=== PATIENT | female | born 1985 | race American Indian/Alaskan Native ===

== ENCOUNTER 2018-02-02 17:52 | Emergency (ER) | payer SELFPAY ==
[2018-02-02] MEDS ORDERED: TYLENOL PO ONE (17:57)
[2018-02-02] MEDS ORDERED: TYLENOL ONE (18:02)
--- NOTE | 2018-02-02 21:49 | Emergency Department Report ---
Minor Respiratory - HPI Chief Complaint: Upper Respiratory Infection Stated Complaint: CHEST PAINS/DIZZY Time Seen by Provider: 02/02/18 21:34 Duration: 1 week Pain Location: Throat Severity: severe (10/10) Minor Respiratory: Yes Rhinorrhea (nasal congestion), Yes Sore Throat, Yes Able to Tolerate Fluids, Yes Ear Pain, Yes Cough, Yes Chest Pain (with coughing), No Sick Contacts, No Hemoptysis, No Shortness of Breath, No Fever Other History: This is a 33-year-old female here reported that she is having in head cold, sore throat, body ache, fever and her temperature is 102.8 in triage area and to give her Tylenol in triage area. She said she has been having nasal congestion and runny nose and then fever started yesterday and started coughing with chest pain or coughing. Denies any nausea or vomiting denies any shortness of breath. Sore throat is 10/10 along with body ache worse with swallowing and no alleviating factors. ED Review of Systems ROS: Stated complaint: CHEST PAINS/DIZZY Other details as noted in HPI Constitutional: chills, fever Eyes: denies: eye discharge ENT: ear pain, throat pain, congestion Respiratory: cough. denies: shortness of breath, SOB with exertion, SOB at rest , stridor, wheezing Cardiovascular: chest pain (with cough ). denies: palpitations, dyspnea on exertion, edema, syncope Gastrointestinal: denies: abdominal pain, nausea, vomiting, hematemesis Musculoskeletal: myalgia. denies: back pain, arthralgia Skin: denies: rash, pruritus Neurological: denies: headache, vertigo ED Past Medical Hx - Past Medical History Previous Medical History?: Yes Hx Hypertension: Yes Hx Congestive Heart Failure: No Hx Diabetes: No Hx Asthma: No Hx COPD: No Additional medical history: Vaginal delivery X 2 - Surgical History Past Surgical History?: Yes Additional Surgical History: right ovary removed - Family History Family history: hypertension - Social History Smoking Status: Never Smoker Substance Use Type: None, Marijuana - Medications Home Medications: Home Medications Medication Instructions Recorded Confirmed Last Taken Type Acetaminophen/Codeine [Tylenol #3] 1 tab PO Q6H PRN #21 tab 09/30/14 Unknown Rx Doxycycline [Vibramycin CAP] 100 mg PO Q12HR #28 capsule 09/30/14 Unknown Rx metroNIDAZOLE [Flagyl TAB] 500 mg PO Q12HR #28 tab 09/30/14 Unknown Rx Ciprofloxacin HCl [Ciprofloxacin 500 mg PO Q12H #20 tab 10/26/14 Unknown Rx TAB] HYDROcodone/APAP 5-325 [Noble 1 each PO TID #15 tablet 10/26/14 Unknown Rx 5/325] Ibuprofen [Motrin 800 MG tab] 800 mg PO TID PRN #45 tablet 10/26/14 Unknown Rx Sulfamethoxazole/Trimethoprim 1 each PO BID #20 tablet 10/26/14 Unknown Rx [Bactrim DS TAB] ALBUTEROL Inhaler (OR & NICU) 2 puff IH Q6H PRN #1 inhalation 02/03/18 Unknown Rx [ProAir HFA Inhaler] Azithromycin [Zithromax Z-CHUCKIE] 250 mg PO DAILY 5 Days #1 pkg 02/03/18 Unknown Rx Cetirizine HCl [ZyrTEC] 10 mg PO QAM 14 Days #14 capsule 02/03/18 Unknown Rx Fluticasone [Flonase] 1 spray NS QDAY 14 Days #1 bottle 02/03/18 Unknown Rx Ibuprofen [Motrin] 800 mg PO Q8HR PRN #12 tablet 02/03/18 Unknown Rx guaiFENesin/CODEINE [Robitussin AC] 10 ml PO QHS PRN #70 oral.liqd 02/03/18 Unknown Rx methylPREDNISolone [Medrol Dose 4 mg PO DAILY #1 tab.ds.pk 02/03/18 Unknown Rx Chuckie] Minor Respiratory Exam - Exam General: Vital signs noted. No distress. Alert and acting appropriately. This is a 32-year-old female well-nourished well-developed in no acute distress. HEENT: Yes Moist Mucous Membranes (uvula midline and oral airways patent), Yes Rhinorrhea (nasal congestion), Yes Frontal Tenderness, Yes Maxillary Tenderness, No Pharyngeal Erythema, No Pharyngeal Exudates, No Conjuctival Injection Ear: Neither TM Bulge (bilateral TM congested), Neither TM Erythema, Neither EAC Pain, Neither EAC Discharge Neck: Yes Supple (full range of motion and no C-spine tenderness), No Adenopathy Lungs: Yes Good Air Exchange, Yes Wheezes (scattered wheezes to upper lung field), Yes Cough (dry cough), No Ronchi, No Stridor, No Labored Respirations, No Retractions, No Use of Accessory Muscles, No Other Abnormal Lung Sounds Heart: Yes Regular (tachycardic at 122), No Murmur Abdomen: Yes Normal Bowel Sounds, No Tenderness (nontender the palpation in all quadrants), No Peritoneal Signs Skin: Yes Edema, No Rash Neurologic: Alert and oriented 3., no deficits. Musculoskeletal: Unremarkable. ED Course Vital Signs 02/02/18 17:59 Temperature 102.8 F H Pulse Rate 122 H Respiratory 20 Rate Blood Pressure 152/100 O2 Sat by Pulse 100 Oximetry Vital Signs 02/02/18 02/03/18 02/03/18 17:59 00:05 00:09 Temperature 102.8 F H 98.5 F Pulse Rate 122 H 96 H Respiratory 20 18 Rate Blood Pressure 152/100 126/65 O2 Sat by Pulse 100 98 Oximetry - Reevaluation(s) Reevaluation #1: 02/02/18 23:59 She given Tylenol 975 mg in triage and an additional Motrin 800 mg by mouth in ED. She feels better. Tolerating fluids and no pain at present. ED Medical Decision Making - Radiology Data Radiology results: report reviewed Chest x-ray dictated by radiologist and report reviewed by myself. Please see details below Findings [facility] [address] [place] [address] XRay Report Signed Patient: KIM WHITEHEAD MR#: [id number] : 1985 Acct:[id number] Age/Sex: 32 / F ADM Date: 02/02/18 Loc: ED Attending Dr: Ordering Physician: CARLINE GODDARD Date of Service: 02/02/18 Procedure(s): XR chest routine 2V Accession Number(s): [id number] cc: CARLINE GODDARD Fluoro Time In Minutes: FINAL REPORT EXAM: XR CHEST ROUTINE 2V HISTORY: cough fever and body aches TECHNIQUE: PA and lateral views of the chest were obtained. PRIORS: None. FINDINGS: There are no focal consolidations to suggest pneumonia. No large pleural effusion. No pneumothorax. Cardiac silhouette and mediastinal structures are unremarkable. No acute osseous abnormality identified. IMPRESSION: No radiographic evidence of acute cardiopulmonary disease. Transcribed By: DT Dictated By: CLAUDE VELASCO DO Electronically Authenticated By: CLAUDE VELASCO DO Signed Date/Time: 02/02/182331 DD/ 33 TD/TT: 02/02/182333 - Medical Decision Making This is a 32-year-old female here reported that she is having cough and cold symptoms and she started off with nasal congestion and runny nose with sinus problem 1 week but over the last couple days she has been having a fever body ache. Rapid strep and flu negative, chest x-ray dictated by radiologist's report reviewed by myself. No acute findings. I discussed this patient as she voiced understanding. I discussed diagnosis and treatment plan. Patient with sinusitis with mild bronchitis. She is not having any chest pain at present. She only had chest pain with coughing. Her vital signs and temperature is better and she says she feels better after given Tylenol 975 mg by mouth and Motrin 800 mg by mouth. Patient discharged home in stable condition with prescription for Z-Chuckie, Medrol Dosepak, Flonase, Zyrtec, guaifenesin with codeine and Motrin. - Differential Diagnosis PNA, bronchitis, sinusitis, viral syndrome, pharyngitis Critical care attestation.: If time is entered above; I have spent that time in minutes in the direct care of this critically ill patient, excluding procedure time. ED Disposition Clinical Impression: Cough in adult patient, Fever in adult Sinusitis Qualifiers: Sinusitis location: unspecified location Chronicity: acute Recurrence: not specified as recurrent Qualified Code(s): J01.90 - Acute sinusitis, unspecified Acute bronchitis Qualifiers: Bronchitis organism: unspecified organism Qualified Code(s): J20.9 - Acute bronchitis, unspecified Disposition: DC-01 TO HOME OR SELFCARE Is pt being admited?: No Does the pt Need Aspirin: No Condition: Stable Instructions: Acute Bronchitis (ED), Sinusitis (ED), Acute Cough (ED), Fever in Adults (ED) Additional Instructions: Please follow up with a primary care physician in 2 days if he do not have one follow-up with outside Medical Center Take motrin in every 4-6 hours 2 days and then as needed for fever and pain Take other medication as prescribed. Use albuterol inhaler every 6 hours 2 days and then as needed If your condition worsens, return to the emergency room Increasing fluid intake to 2-3 L of water daily and rest. Take cough medicine with codeine nightly as needed. Please do not drive or operate heavy machinery as this medication causes drowsiness Referrals: PRIMARY CARE, [Primary Care Provider] - 02/04/18 [facility] [Outside] - 02/04/18 Forms: Work/School Release Form(ED)
[2018-02-02] MEDS ORDERED: MOTRIN PO ONE (21:57)
--- NOTE | 2018-02-02 23:32 | XRay Report ---
FINAL REPORT EXAM: XR CHEST ROUTINE 2V HISTORY: cough fever and body aches TECHNIQUE: PA and lateral views of the chest were obtained. PRIORS: None. FINDINGS: There are no focal consolidations to suggest pneumonia. No large pleural effusion. No pneumothorax. C ardiac silhouette and mediastinal structures are unremarkable. No acute osseous abnormality identifie d. IMPRESSION: No radiographic evidence of acute cardiopulmonary disease.
[2018-02-03 00:09] VITALS: BP 126/65
== END 2018-02-03 00:22 | disposition home or self-care (01) ==
LOC: ED 17:52
DX: J01.90 Acute sinusitis, unspecified (principal); J20.9 Acute bronchitis, unspecified; F12.10 Cannabis abuse, uncomplicated
CPT/HCPCS: 71046; 87116; 87400; 87430

== ENCOUNTER 2018-12-24 20:54 | Emergency (ER) | payer MEDICAID ==
[2018-12-24 21:02] VITALS: BP 143/98
--- NOTE | 2018-12-24 21:10 | Event Note ---
ED Screening Note Date of service: 12/24/18 Time: 21:05 ED Screening Note: This is a 33 y.o. F. that presents to the ER with pelvic pain. 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 She is 9 weeks . Followed by [facility]. Reports calling OBGYN and informed to go directly to ER. Denies vaginal bleeding. Reports history of prolapsed uterus with prior . This initial assessment/diagnostic orders/clinical plan/treatment(s) is/are subject to change based on patients health status, clinical progression and re- assessment by fellow clinical providers in the ED. Further treatment and workup at subsequent clinical providers discretion. Patient/guardian urged not to elope from the ED as their condition may be serious if not clinically assessed and managed. Initial orders include: Pelvic Exam Labs
[2018-12-24 23:14] LABS: Bilirubin,Urine NEG (Negative); Blood,Urine NEG (Negative); Color,Urine Yellow (Yellow); Mucus,Urine 1+ /HPF
[2018-12-24] MEDS ORDERED: ACETAMINOPHEN 500 MG TAB PO ONE (23:42)
--- NOTE | 2018-12-24 23:47 | Emergency Department Report ---
ED Female HPI - General Chief complaint: Abdominal Pain Stated complaint: CERVIX PAIN, 9 WEEKS Time Seen by Provider: 12/24/18 21:04 Source: patient Mode of arrival: Ambulatory Limitations: No Limitations - History of Present Illness Initial comments: 33-year-old -[place] female states that she's approximate 9 weeks and 4 days she's reports she went to the bathroom and felt something was hanging out of her vaginal area. Patient states at that time she was dizzy and shortness of breath. Patient complains of abdominal/pelvic pain. Patient reports a past medical history of cervical prolapse, history of preeclampsia. Patient reports that she is currently on vitamins and labetalol. Her last menstrual period was 10/18/2018. [facility] is [facility] by [facility]. -: This evening Location: suprapubic Severity: severe Severity scale (0 -10): 9 Quality: cramping, sharp Consistency: constant Improves with: none Worsens with: none Are you Now?: Yes Last Menstrual Period: 10/18/18 EDC: 07/25/19 Associated Symptoms: abdominal pain, shortness of breath. denies: vaginal discharge, vaginal bleeding, nausea/vomiting, fever/chills - Related Data Sexually active: Yes Previous Rx's Medication Instructions Recorded Last Taken Type Acetaminophen/Codeine [Tylenol #3] 1 tab PO Q6H PRN #21 tab 09/30/14 Unknown Rx DOXYCYCLINE Hyclate [Vibramycin 100 mg PO Q12HR #28 capsule 09/30/14 Unknown Rx CAP] metroNIDAZOLE [Flagyl TAB] 500 mg PO Q12HR #28 tab 09/30/14 Unknown Rx Ciprofloxacin HCl [Ciprofloxacin 500 mg PO Q12H #20 tab 10/26/14 Unknown Rx TAB] HYDROcodone/APAP 5-325 [Miracle 1 each PO TID #15 tablet 10/26/14 Unknown Rx 5/325] Ibuprofen [Motrin 800 MG tab] 800 mg PO TID PRN #45 tablet 10/26/14 Unknown Rx Sulfamethoxazole/Trimethoprim 1 each PO BID #20 tablet 10/26/14 Unknown Rx [Bactrim DS TAB] ALBUTEROL Inhaler (OR & NICU) 2 puff IH Q6H PRN #1 inhalation 02/03/18 Unknown Rx [ProAir HFA Inhaler] Azithromycin [Zithromax Z-KELTON] 250 mg PO DAILY 5 Days #1 pkg 02/03/18 Unknown Rx Cetirizine HCl [ZyrTEC] 10 mg PO QAM 14 Days #14 capsule 02/03/18 Unknown Rx Fluticasone [Flonase] 1 spray NS QDAY 14 Days #1 bottle 02/03/18 Unknown Rx Ibuprofen [Motrin] 800 mg PO Q8HR PRN #12 tablet 02/03/18 Unknown Rx guaiFENesin/CODEINE [Robitussin AC] 10 ml PO QHS PRN #70 oral.liqd 02/03/18 Unknown Rx methylPREDNISolone [Medrol Dose 4 mg PO DAILY #1 tab.ds.pk 02/03/18 Unknown Rx Kelton] Allergies Allergy/AdvReac Type Severity Reaction Status Date / Time Penicillins Allergy Hives Verified 12/24/18 21:00 ED Review of Systems ROS: Stated complaint: CERVIX PAIN, 9 WEEKS Other details as noted in HPI Comment: All other systems reviewed and negative ED Past Medical Hx - Past Medical History Previous Medical History?: Yes Hx Hypertension: Yes Hx Congestive Heart Failure: No Hx Diabetes: No Hx Asthma: No Hx COPD: No Additional medical history: Vaginal delivery X 2 - Surgical History Past Surgical History?: Yes Additional Surgical History: right ovary removed - Social History Smoking Status: Never Smoker Substance Use Type: None, Marijuana - Medications Home Medications: Home Medications Medication Instructions Recorded Confirmed Last Taken Type Acetaminophen/Codeine [Tylenol #3] 1 tab PO Q6H PRN #21 tab 09/30/14 Unknown Rx DOXYCYCLINE Hyclate [Vibramycin 100 mg PO Q12HR #28 capsule 09/30/14 Unknown Rx CAP] metroNIDAZOLE [Flagyl TAB] 500 mg PO Q12HR #28 tab 09/30/14 Unknown Rx Ciprofloxacin HCl [Ciprofloxacin 500 mg PO Q12H #20 tab 10/26/14 Unknown Rx TAB] HYDROcodone/APAP 5-325 [Miracle 1 each PO TID #15 tablet 10/26/14 Unknown Rx 5/325] Ibuprofen [Motrin 800 MG tab] 800 mg PO TID PRN #45 tablet 10/26/14 Unknown Rx Sulfamethoxazole/Trimethoprim 1 each PO BID #20 tablet 10/26/14 Unknown Rx [Bactrim DS TAB] ALBUTEROL Inhaler (OR & NICU) 2 puff IH Q6H PRN #1 inhalation 02/03/18 Unknown Rx [ProAir HFA Inhaler] Azithromycin [Zithromax Z-KELTON] 250 mg PO DAILY 5 Days #1 pkg 02/03/18 Unknown Rx Cetirizine HCl [ZyrTEC] 10 mg PO QAM 14 Days #14 capsule 02/03/18 Unknown Rx Fluticasone [Flonase] 1 spray NS QDAY 14 Days #1 bottle 02/03/18 Unknown Rx Ibuprofen [Motrin] 800 mg PO Q8HR PRN #12 tablet 02/03/18 Unknown Rx guaiFENesin/CODEINE [Robitussin AC] 10 ml PO QHS PRN #70 oral.liqd 02/03/18 Unknown Rx methylPREDNISolone [Medrol Dose 4 mg PO DAILY #1 tab.ds.pk 02/03/18 Unknown Rx Kelton] ED Physical Exam - General Limitations: No Limitations General appearance: alert, in no apparent distress - Head Head exam: Present: atraumatic, normocephalic - Eye Eye exam: Present: normal appearance - ENT ENT exam: Present: mucous membranes moist - GI/Abdominal GI/Abdominal exam: Present: soft, tenderness. Absent: distended - Bi-manual exam: Present: cervical motion tendernes, uterine enlargement, other (cervix prolapsed mid vaginal vault) - Extremities Exam Extremities exam: Present: normal inspection, full ROM - Back Exam Back exam: Present: normal inspection - Neurological Exam Neurological exam: Present: alert, oriented X3 - Psychiatric Psychiatric exam: Present: normal affect, normal mood - Skin Skin exam: Present: warm, dry, intact, normal color. Absent: rash ED Course Vital Signs 12/24/18 20:59 Temperature 98.3 F Pulse Rate 102 H Respiratory 18 Rate Blood Pressure 143/98 O2 Sat by Pulse 99 Oximetry ED Medical Decision Making - Lab Data Lab Results 12/24/18 12/24/18 Range/Units 22:49 Unknown HCG, Quant 59546 H (0-4) mIU/mL Urine Color Yellow (Yellow) Urine Turbidity Cloudy (Clear) Urine pH 7.0 (5.0-7.0) Ur Specific [place] 1.020 (1.003-1.030) Urine Protein 30 mg/dl (Negative) mg/dL Urine Glucose (UA) Neg (Negative) mg/dL Urine Ketones 20 (Negative) mg/dL Urine Blood Neg (Negative) Urine Nitrite Neg (Negative) Urine Bilirubin Neg (Negative) Urine Urobilinogen 4.0 (<2.0) mg/dL Ur Leukocyte Esterase Neg (Negative) Urine WBC (Auto) 3.0 (0.0-6.0) /HPF Urine RBC (Auto) 2.0 (0.0-6.0) /HPF U Epithel Cells (Auto) 1.0 (0-13.0) /HPF Urine Mucus 1+ /HPF Urine Yeast (Budding) 2+ /HPF - Medical Decision Making This is a 33 y.o. F. that presents to the ER with pelvic pain. 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 Followed by [facility]. Reports calling OBGYN and informed to go directly to ER. Denies vaginal bleeding. Reports history of prolapsed uterus with prior . Critical care attestation.: If time is entered above; I have spent that time in minutes in the direct care of this critically ill patient, excluding procedure time. ED Disposition Condition: Stable Instructions: Abdominal Pain (ED) Referrals: CALEB DIAZ MD [Primary Care Provider] - 3-5 Days
--- NOTE | 2018-12-25 01:06 | Ultrasound Report ---
Obstetrical ultrasound. HISTORY: Pelvic pain with possible cervical prolapse. FINDINGS: Imaging was performed by transabdominally and endovaginally. FINDINGS: The uterus measures 13.4 x 9.7 x 9.8 cm. A small fibroid measures 1.5 cm. An early viable intrauterine is dated 20 weeks 6 days. heart tones are 170 bpm. The right ovary was not visualized. The left ovary measures 2.4 x 2.1 x 3 cm and demonstrate appropri ate flow. IMPRESSION: 1. Early viable intrauterine dated 9 weeks 6 days. 2. Left ovary normal. Signer Name: Luis Valencia MD Signed: 12/25/2018 1:01 AM Workstation Name: [id number]
== END 2018-12-25 01:46 | disposition left against medical advice (07) ==
LOC: ED 20:54
DX: O9A.211 Injury, poisoning and certain other consequences of external causes complicating pregnancy, first trimester (principal); R10.2 Pelvic and perineal pain; R42 Dizziness and giddiness; O16.1 Unspecified maternal hypertension, first trimester; F12.10 Cannabis abuse, uncomplicated; Z79.899 Other long term (current) drug therapy; Z79.1 Long term (current) use of non-steroidal anti-inflammatories (NSAID); Z88.0 Allergy status to penicillin; Z3A.09 9 weeks gestation of pregnancy; W01.198A Fall on same level from slipping, tripping and stumbling with subsequent striking against other object, initial encounter; Y93.89 Activity, other specified; Y92.091 Bathroom in other non-institutional residence as the place of occurrence of the external cause; Y99.8 Other external cause status
CPT/HCPCS: 36415; 76801; 76817; 81001; 84702; 99284

== ENCOUNTER 2019-07-06 11:15 | Inpatient (IN) | payer MEDICAID ==
[2019-07-06] MEDS ORDERED: TERBUTALINE 1 MG/1 ML INJ SUB-Q PRN (11:55)
[2019-07-06] MEDS ORDERED: LIDOCAINE (2%) 20 MG/1 ML VIAL 20 ML MDV INFILTRATI ONE (11:55)
[2019-07-06] MEDS ORDERED: ONDANSETRON 4 MG/2 ML INJ IV PRN (11:55)
[2019-07-06] MEDS ORDERED: TERBUTALINE 1 MG/1 ML INJ IVP PRN (11:55)
[2019-07-06] MEDS ORDERED: fentaNYL 100 MCG/2 ML INJ IV PRN (11:55)
[2019-07-06] MEDS ORDERED: ePHEDrine SULFATE 50 MG/1 ML INJ IV PRN (11:55)
[2019-07-06] MEDS ORDERED: NalbUPHINE 10 MG/1 ML INJ IV PRN (11:55)
[2019-07-06] MEDS ORDERED: OXYTOCIN DRIP 30 UNITS/500 ML BAG IV SCH (12:00)
[2019-07-06 12:14] LABS: Bilirubin,Urine NEG (Negative); Blood,Urine NEG (Negative); Color,Urine Amber (Yellow); Mucus,Urine 3+ /HPF
[2019-07-06 12:32] LABS: Hematocrit 33.8 % (30.3-42.9); Hemoglobin 11.1 gm/dl (10.1-14.3); Mean Corpuscular HGB Conc 33 % (30-34); Mean Corpuscular Volume 84 fl (79-97); Platelet Count 367 K/mm3 (140-440); Red Blood Count 4.01 M/mm3 (3.65-5.03); Red Cell Distribution Width 14.2 % (13.2-15.2)
--- NOTE | 2019-07-06 12:37 | History and Physical Report ---
History of Present Illness Date of examination: 07/06/19 Date of admission: 07/06/19 11:39 Chief complaint: Presents for scheduled induction of labor per [facility] due to GDM A2, CHTN, Maternal obesity, and Non-Compliance. History of present illness: Early entry to care, co-maximiliano with [facility] due to CHTN, Maternal Obesity, GDM A2. course complicated by Smoking, Vitamin D Deficiency, Anemia, and a Hx of HSV II. 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 History: abnormal PAP smear, chlamydia, herpes, trichomonas Family/Genetic History: diabetes, heart disease, hypertension Social history: single, smoking (Tobacco and THC) - Obstetrical History Expected Date of Delivery: 07/25/19 Actual Gestation: 37 Week(s) 2 Day(s) : 5 Para: 2 Hx # Term Pregnancies: 2 Induced : 2 Number of Living Children: 2 #1 Gender: Male year: 2,[birth year] Birthweight: 2.523 kg Method of Delivery: Vaginal Gestational age at delivery: 37 Complications: other (induced for preeclampsia) #2 Infant Gender: Male year: 2,013 Birthweight: 3.459 kg Method of Delivery: Vaginal Gestational age at delivery: 38 Complications: none Medications and Allergies Allergies Allergy/AdvReac Type Severity Reaction Status Date / Time Penicillins Allergy Severe Hives Verified 07/06/19 11:50 Home Medications Medication Instructions Recorded Confirmed Last Taken Type Acetaminophen/Codeine [Tylenol #3] 1 tab PO Q6H PRN #21 tab 09/30/14 Unknown Rx DOXYCYCLINE Hyclate [Vibramycin 100 mg PO Q12HR #28 capsule 09/30/14 Unknown Rx CAP] metroNIDAZOLE [Flagyl TAB] 500 mg PO Q12HR #28 tab 09/30/14 Unknown Rx Ciprofloxacin HCl [Ciprofloxacin 500 mg PO Q12H #20 tab 10/26/14 Unknown Rx TAB] HYDROcodone/APAP 5-325 [[place] 1 each PO TID #15 tablet 10/26/14 Unknown Rx 5/325] Ibuprofen [Motrin 800 MG tab] 800 mg PO TID PRN #45 tablet 10/26/14 Unknown Rx Sulfamethoxazole/Trimethoprim 1 each PO BID #20 tablet 10/26/14 Unknown Rx [Bactrim DS TAB] Albuterol INH(or & Nicu Only) 2 puff IH Q6H PRN #1 inhalation 02/03/18 Unknown Rx [ProAir HFA Inhaler] Azithromycin [Zithromax Z-KELTON] 250 mg PO DAILY 5 Days #1 pkg 02/03/18 Unknown Rx Cetirizine HCl [ZyrTEC] 10 mg PO QAM 14 Days #14 capsule 02/03/18 Unknown Rx Fluticasone [Flonase] 1 spray NS QDAY 14 Days #1 bottle 02/03/18 Unknown Rx Ibuprofen [Motrin] 800 mg PO Q8HR PRN #12 tablet 02/03/18 Unknown Rx guaiFENesin/CODEINE [Robitussin AC] 10 ml PO QHS PRN #70 oral.liqd 02/03/18 Unknown Rx methylPREDNISolone [Medrol Dose 4 mg PO DAILY #1 tab.ds.pk 02/03/18 Unknown Rx Kelton] Active Meds: Active Medications Butorphanol Tartrate (Stadol) 2 mg IV Q2H PRN PRN Reason: Pain , Severe (7-10) Ephedrine Sulfate (Ephedrine Sulfate) 10 mg IV Q2M PRN PRN Reason: Hypotension Fentanyl (Sublimaze) 100 mcg IV Q2H PRN PRN Reason: Pain,Severe (7-10) LABOR PAIN Oxytocin/Sodium Chloride (Pitocin/Ns 20 Unit/1000ml Drip) 20 units in 1,000 mls @ 125 mls/hr IV DIRECT YOBANY Oxytocin/Sodium Chloride (Pitocin/Ns 30 Unit/500ml) 30 units in 500 mls @ 4 mls/hr IV TITR YOBANY; Protocol Lactated Ringer's (Lactated Ringers) 1,000 mls @ 125 mls/hr IV DIRECT YOBANY Mineral Oil (Mineral Oil) 30 ml PO QHS PRN PRN Reason: Constipation Misoprostol (Cytotec) 25 mcg VG Q4H PRN PRN Reason: induction Nalbuphine HCl (Nalbuphine) 10 mg IV Q2H PRN PRN Reason: Pain, Moderate (4-6) Ondansetron HCl (Zofran) 4 mg IV Q8H PRN PRN Reason: Nausea And Vomiting Terbutaline Sulfate (Brethine) 0.25 mg SUB-Q ONCE PRN PRN Reason: Hyperstimulation/Hypertonicity Terbutaline Sulfate (Brethine) 0.25 mg IVP ONCE PRN PRN Reason: Hyperstimulation/Hypertonicity Review of Systems All systems: negative - Vital Signs Vital signs: Vital Signs Pulse Pulse Ox 115 H 99 07/06/19 12:00 07/06/19 12:00 Temp Pulse Resp BP Pulse Ox 97.6 F 113 H 20 135/83 100 07/06/19 12:06 07/06/19 12:30 07/06/19 12:06 07/06/19 12:18 07/06/19 12:30 - Physical Exam Breasts: Positive: normal Cardiovascular: Regular rate Lungs: Positive: Clear to auscultation, Normal air movement Abdomen: Positive: normal appearance, soft, normal bowel sounds Genitourinary (Female): Positive: normal external genitalia, normal perenium Vagina: Positive: normal moisture Uterus: Positive: enlarged - Obstetrical FHR: category 1 Uterine Contraction Monitor Mode: External Cervical Dilatation: 3 (Vtx; Intact) Cervical Effacement Percentage: 30 station: -3 Uterine Contraction Pattern: Irregular Uterine Tone Measurement Phase: Resting Uterine Contraction Intensity: Mild Results Result Diagrams: 07/06/19 12:05 Abnormal lab results 07/06/19 Range/Units Unknown Ur Specific [place] 1.034 H (1.003-1.030) Urine WBC (Auto) 17.0 H (0.0-6.0) /HPF U Epithel Cells (Auto) 30.0 H (0-13.0) /HPF All other labs normal. Assessment and Plan A: IUP @ 37 2/7 Weeks Category I Tracing CHTN GDM A2 Maternal Obesity Smoker GBS Negative P: Admit to L&D per Routine Orders Cytotec 25mg Intravaginally Accuchecks q 4 hours PIH Labs
[2019-07-06 12:52] LABS: Alanine Aminotransferase 9 units/L (7-56); Uric Acid 5.1 mg/dL (3.5-7.6)
[2019-07-06] MEDS ORDERED: miSOPROStol 25 MCG TAB VG PRN (13:00)
[2019-07-06] MEDS: ACETAMINOPHEN 325 MG TAB PO PRN ×2 (13:21→21:10)
[2019-07-06] MEDS: LACTATED RINGERS 1,000 ML IV SCH ×2 (13:22→21:10)
[2019-07-06] MEDS: CALCIUM CARBONATE 500 MG TAB CHEW PO SCH (14:38)
[2019-07-06] MEDS: BUTORPHANOL 2 MG/1 ML INJ IV PRN ×3 (17:59→22:35)
--- NOTE | 2019-07-06 19:34 | Progress Note ---
Assessment and Plan A: IUP@ 37.2 wks CHTN; GDMA2; smoker + HSV, - GBS p: Continue monitoring Anticipate - Patient Problems (1) At high risk for complications of intrauterine (IUP) Current Visit: Yes Status: Acute (2) GDM, class A2 Current Visit: Yes Status: Acute (3) Chronic hypertension affecting Current Visit: Yes Status: Acute (4) Smoker Current Visit: Yes Status: Acute Subjective - Subjective Date of service: 07/06/19 Patient reports: movement normal Objective - Vital Signs Vital Signs: Vital Signs - 12hr 07/06/19 07/06/19 07/06/19 12:00 12:03 12:05 Temperature Pulse Rate 115 H 113 H 117 H Respiratory Rate Blood Pressure 138/86 Blood Pressure [Left] O2 Sat by Pulse 99 97 Oximetry 07/06/19 07/06/19 07/06/19 12:06 12:10 12:15 Temperature 97.6 F Pulse Rate 113 H 113 H 121 H Respiratory 20 Rate Blood Pressure Blood Pressure 138/86 [Left] O2 Sat by Pulse 98 99 98 Oximetry 07/06/19 07/06/19 07/06/19 12:18 12:20 12:25 Temperature Pulse Rate 111 H 109 H 102 H Respiratory Rate Blood Pressure 135/83 Blood Pressure [Left] O2 Sat by Pulse 99 100 Oximetry 07/06/19 07/06/19 07/06/19 12:30 12:34 12:35 Temperature Pulse Rate 113 H 115 H 109 H Respiratory Rate Blood Pressure 149/93 Blood Pressure [Left] O2 Sat by Pulse 100 98 Oximetry 07/06/19 07/06/19 07/06/19 12:40 12:56 12:57 Temperature Pulse Rate 98 H 110 H 109 H Respiratory Rate Blood Pressure 176/96 Blood Pressure [Left] O2 Sat by Pulse 99 100 Oximetry 07/06/19 07/06/19 07/06/19 13:01 13:03 13:06 Temperature Pulse Rate 111 H 103 H 116 H Respiratory Rate Blood Pressure 149/87 Blood Pressure [Left] O2 Sat by Pulse 98 99 Oximetry 07/06/19 07/06/19 07/06/19 13:11 13:16 13:17 Temperature Pulse Rate 96 H 99 H 100 H Respiratory Rate Blood Pressure 161/87 Blood Pressure [Left] O2 Sat by Pulse 99 99 Oximetry 07/06/19 07/06/19 07/06/19 13:21 13:26 13:27 Temperature Pulse Rate 106 H 98 H 100 H Respiratory Rate Blood Pressure 147/75 Blood Pressure [Left] O2 Sat by Pulse 99 99 Oximetry 07/06/19 07/06/19 07/06/19 13:31 13:33 13:36 Temperature Pulse Rate 114 H 102 H 96 H Respiratory Rate Blood Pressure 164/80 Blood Pressure [Left] O2 Sat by Pulse 99 100 Oximetry 07/06/19 07/06/19 07/06/19 13:41 13:46 13:47 Temperature Pulse Rate 107 H 94 H 93 H Respiratory Rate Blood Pressure 170/67 Blood Pressure [Left] O2 Sat by Pulse 100 100 Oximetry 07/06/19 07/06/19 07/06/19 13:51 13:56 14:01 Temperature Pulse Rate 112 H 94 H 90 Respiratory Rate Blood Pressure Blood Pressure [Left] O2 Sat by Pulse 99 99 99 Oximetry 07/06/19 07/06/19 07/06/19 14:04 14:06 14:11 Temperature Pulse Rate 94 H 96 H 97 H Respiratory Rate Blood Pressure 135/61 Blood Pressure [Left] O2 Sat by Pulse 100 99 Oximetry 07/06/19 07/06/19 07/06/19 14:16 14:18 14:22 Temperature Pulse Rate 93 H 94 H 96 H Respiratory Rate Blood Pressure 160/84 Blood Pressure [Left] O2 Sat by Pulse 100 99 Oximetry 07/06/19 07/06/19 07/06/19 14:27 14:33 14:34 Temperature Pulse Rate 92 H 109 H 95 H Respiratory Rate Blood Pressure Blood Pressure [Left] O2 Sat by Pulse 99 97 91 Oximetry 07/06/19 07/06/19 07/06/19 14:38 14:43 14:48 Temperature Pulse Rate 98 H 96 H 90 Respiratory Rate Blood Pressure Blood Pressure [Left] O2 Sat by Pulse 100 100 99 Oximetry 07/06/19 07/06/19 07/06/19 14:53 14:59 15:04 Temperature Pulse Rate 91 H 92 H 94 H Respiratory Rate Blood Pressure Blood Pressure [Left] O2 Sat by Pulse 99 99 98 Oximetry 07/06/19 07/06/19 07/06/19 15:09 15:14 15:19 Temperature Pulse Rate 95 H 85 82 Respiratory Rate Blood Pressure 143/85 Blood Pressure [Left] O2 Sat by Pulse 99 100 100 Oximetry 07/06/19 07/06/19 07/06/19 15:24 15:29 15:34 Temperature Pulse Rate 92 H 91 H 88 Respiratory Rate Blood Pressure Blood Pressure [Left] O2 Sat by Pulse 100 100 99 Oximetry 07/06/19 07/06/19 07/06/19 15:39 16:04 16:09 Temperature Pulse Rate 86 100 H 89 Respiratory Rate Blood Pressure Blood Pressure [Left] O2 Sat by Pulse 100 98 100 Oximetry 07/06/19 07/06/19 07/06/19 16:14 16:19 16:24 Temperature Pulse Rate 91 H 95 H 96 H Respiratory Rate Blood Pressure 176/86 Blood Pressure [Left] O2 Sat by Pulse 98 99 100 Oximetry 07/06/19 07/06/19 07/06/19 16:29 16:34 16:39 Temperature Pulse Rate 91 H 106 H 92 H Respiratory Rate Blood Pressure Blood Pressure [Left] O2 Sat by Pulse 99 100 99 Oximetry 07/06/19 07/06/19 07/06/19 16:44 16:49 16:54 Temperature Pulse Rate 91 H 107 H 94 H Respiratory Rate Blood Pressure Blood Pressure [Left] O2 Sat by Pulse 100 100 99 Oximetry 07/06/19 07/06/19 07/06/19 16:59 17:04 17:09 Temperature Pulse Rate 105 H 102 H 94 H Respiratory Rate Blood Pressure Blood Pressure [Left] O2 Sat by Pulse 99 99 99 Oximetry 07/06/19 07/06/19 07/06/19 17:11 17:14 17:19 Temperature 98.8 F Pulse Rate 93 H 92 H 93 H Respiratory 22 Rate Blood Pressure Blood Pressure [Left] O2 Sat by Pulse 99 100 100 Oximetry 07/06/19 07/06/19 07/06/19 17:22 17:24 17:52 Temperature Pulse Rate 100 H 99 H 99 H Respiratory Rate Blood Pressure 150/91 Blood Pressure [Left] O2 Sat by Pulse 100 99 Oximetry 07/06/19 07/06/19 07/06/19 17:54 17:57 17:58 Temperature Pulse Rate 103 H 92 H 97 H Respiratory Rate Blood Pressure 142/81 Blood Pressure [Left] O2 Sat by Pulse 79 L 98 Oximetry 07/06/19 07/06/19 07/06/19 18:02 18:07 18:12 Temperature Pulse Rate 91 H 84 88 Respiratory Rate Blood Pressure Blood Pressure [Left] O2 Sat by Pulse 100 98 97 Oximetry 07/06/19 07/06/19 07/06/19 18:17 18:22 18:27 Temperature Pulse Rate 87 95 H 90 Respiratory Rate Blood Pressure Blood Pressure [Left] O2 Sat by Pulse 98 99 97 Oximetry 07/06/19 07/06/19 07/06/19 18:28 18:32 18:37 Temperature Pulse Rate 96 H 89 83 Respiratory Rate Blood Pressure 131/79 Blood Pressure [Left] O2 Sat by Pulse 85 98 99 Oximetry 07/06/19 07/06/19 07/06/19 18:42 18:47 18:52 Temperature Pulse Rate 86 85 84 Respiratory Rate Blood Pressure Blood Pressure [Left] O2 Sat by Pulse 100 99 99 Oximetry 07/06/19 07/06/19 07/06/19 18:57 18:58 19:02 Temperature Pulse Rate 89 38 L 84 Respiratory Rate Blood Pressure Blood Pressure [Left] O2 Sat by Pulse 100 81 L 99 Oximetry 07/06/19 07/06/19 07/06/19 19:07 19:12 19:17 Temperature Pulse Rate 80 77 77 Respiratory Rate Blood Pressure 146/80 Blood Pressure [Left] O2 Sat by Pulse 99 100 100 Oximetry 07/06/19 19:22 Temperature Pulse Rate 80 Respiratory Rate Blood Pressure Blood Pressure [Left] O2 Sat by Pulse 100 Oximetry - Exam Breasts: normal Abdomen: Present: normal appearance, soft Vulva: both: normal Uterus: Present: normal FHR: category 1 FHR comments: mod sathya with pos accels and neg decels Uterine Contraction Monitor Mode: External Cervical Dilatation: 4 Cervical Effacement Percentage: 50 station: -3 Uterine Contraction Frequency (min): irreg Uterine Contraction Pattern: Irregular Uterine Tone Measurement Phase: Resting Uterine Contraction Intensity: Moderate Extremities: normal - Labs Labs: Abnormal Labs 07/06/19 07/06/19 12:05 Unknown Creatinine 0.3 L Ur Specific [place] 1.034 H Urine WBC (Auto) 17.0 H U Epithel Cells (Auto) 30.0 H Laboratory Results - last 24 hr 07/06/19 07/06/19 07/06/19 12:05 12:05 12:44 WBC 11.0 RBC 4.01 Hgb 11.1 Hct 33.8 MCV 84 MCH 28 MCHC 33 RDW 14.2 Plt Count 367 Potassium 4.0 Creatinine 0.3 L Estimated GFR > 60 POC Glucose 79 Uric Acid 5.1 AST 12 ALT 9 Lactate Dehydrogenase 122 Urine Color Urine Turbidity Urine pH Ur Specific [place] Urine Protein Urine Glucose (UA) Urine Ketones Urine Blood Urine Nitrite Urine Bilirubin Urine Urobilinogen Ur Leukocyte Esterase Urine WBC (Auto) Urine RBC (Auto) U Epithel Cells (Auto) Urine Mucus Blood Type Antibody Screen 07/06/19 07/06/19 13:53 Unknown WBC RBC Hgb Hct MCV MCH MCHC RDW Plt Count Potassium Creatinine Estimated GFR POC Glucose Uric Acid AST ALT Lactate Dehydrogenase Urine Color Aisha Urine Turbidity Slightly-cloudy Urine pH 5.0 Ur Specific [place] 1.034 H Urine Protein 30 mg/dl Urine Glucose (UA) Neg Urine Ketones Neg Urine Blood Neg Urine Nitrite Neg Urine Bilirubin Neg Urine Urobilinogen 2.0 Ur Leukocyte Esterase Mod Urine WBC (Auto) 17.0 H Urine RBC (Auto) 4.0 U Epithel Cells (Auto) 30.0 H Urine Mucus 3+ Blood Type O POSITIVE Antibody Screen Negative
[2019-07-06 19:44] LABS: Amphetamine Screen,Urine PRESUMPTIVE NEGATIVE; Benzodiazepines Screen,Urine PRESUMPTIVE NEGATIVE; Cocaine Screen,Urine PRESUMPTIVE NEGATIVE; Methadone Screen,Urine PRESUMPTIVE NEGATIVE; Opiate Screen,Urine PRESUMPTIVE NEGATIVE
[2019-07-06 19:57] LABS: Cannabinoid Screen,Urine PRESUMPTIVE POSITIVE
[2019-07-06] MEDS ORDERED: MINERAL OIL 30 ML ORAL LIQD PO PRN (22:00)
--- NOTE | 2019-07-07 01:16 | Progress Note ---
Assessment and Plan O: FHR 140 with mod sathya pos accels neg decels uc mod irreg SVE: 5/60%/-2 A: IUP@ 37.3 wks CAT 1 FHT p: AROM CL fluid IFM/IUPC inserted Pain med prn Continue monitoring with pitocin Anticipate - Patient Problems (1) At high risk for complications of intrauterine (IUP) Current Visit: Yes Status: Acute (2) GDM, class A2 Current Visit: Yes Status: Acute (3) Chronic hypertension affecting Current Visit: Yes Status: Acute (4) Smoker Current Visit: Yes Status: Acute Subjective - Subjective Date of service: 07/07/19 Interval history: O: VSS, FHR 140 with mod sathya pos accels neg decels uc mod irreg SVE: 5/60%/-2 A: IUP@ 37.3 wks CAT 1 FHT p: AROM CL fluid IFM/IUPC inserted Pain med prn Continue monitoring with pitocin Anticipate Patient reports: movement normal Objective - Vital Signs Vital Signs: Vital Signs - 12hr 07/06/19 07/06/19 07/06/19 13:11 13:16 13:17 Temperature Pulse Rate 96 H 99 H 100 H Respiratory Rate Blood Pressure 161/87 O2 Sat by Pulse 99 99 Oximetry 07/06/19 07/06/19 07/06/19 13:21 13:26 13:27 Temperature Pulse Rate 106 H 98 H 100 H Respiratory Rate Blood Pressure 147/75 O2 Sat by Pulse 99 99 Oximetry 07/06/19 07/06/19 07/06/19 13:31 13:33 13:36 Temperature Pulse Rate 114 H 102 H 96 H Respiratory Rate Blood Pressure 164/80 O2 Sat by Pulse 99 100 Oximetry 07/06/19 07/06/19 07/06/19 13:41 13:46 13:47 Temperature Pulse Rate 107 H 94 H 93 H Respiratory Rate Blood Pressure 170/67 O2 Sat by Pulse 100 100 Oximetry 07/06/19 07/06/19 07/06/19 13:51 13:56 14:01 Temperature Pulse Rate 112 H 94 H 90 Respiratory Rate Blood Pressure O2 Sat by Pulse 99 99 99 Oximetry 07/06/19 07/06/19 07/06/19 14:04 14:06 14:11 Temperature Pulse Rate 94 H 96 H 97 H Respiratory Rate Blood Pressure 135/61 O2 Sat by Pulse 100 99 Oximetry 07/06/19 07/06/19 07/06/19 14:16 14:18 14:22 Temperature Pulse Rate 93 H 94 H 96 H Respiratory Rate Blood Pressure 160/84 O2 Sat by Pulse 100 99 Oximetry 07/06/19 07/06/19 07/06/19 14:27 14:33 14:34 Temperature Pulse Rate 92 H 109 H 95 H Respiratory Rate Blood Pressure O2 Sat by Pulse 99 97 91 Oximetry 07/06/19 07/06/19 07/06/19 14:38 14:43 14:48 Temperature Pulse Rate 98 H 96 H 90 Respiratory Rate Blood Pressure O2 Sat by Pulse 100 100 99 Oximetry 07/06/19 07/06/19 07/06/19 14:53 14:59 15:04 Temperature Pulse Rate 91 H 92 H 94 H Respiratory Rate Blood Pressure O2 Sat by Pulse 99 99 98 Oximetry 07/06/19 07/06/19 07/06/19 15:09 15:14 15:19 Temperature Pulse Rate 95 H 85 82 Respiratory Rate Blood Pressure 143/85 O2 Sat by Pulse 99 100 100 Oximetry 07/06/19 07/06/19 07/06/19 15:24 15:29 15:34 Temperature Pulse Rate 92 H 91 H 88 Respiratory Rate Blood Pressure O2 Sat by Pulse 100 100 99 Oximetry 07/06/19 07/06/19 07/06/19 15:39 16:04 16:09 Temperature Pulse Rate 86 100 H 89 Respiratory Rate Blood Pressure O2 Sat by Pulse 100 98 100 Oximetry 07/06/19 07/06/19 07/06/19 16:14 16:19 16:24 Temperature Pulse Rate 91 H 95 H 96 H Respiratory Rate Blood Pressure 176/86 O2 Sat by Pulse 98 99 100 Oximetry 07/06/19 07/06/19 07/06/19 16:29 16:34 16:39 Temperature Pulse Rate 91 H 106 H 92 H Respiratory Rate Blood Pressure O2 Sat by Pulse 99 100 99 Oximetry 07/06/19 07/06/19 07/06/19 16:44 16:49 16:54 Temperature Pulse Rate 91 H 107 H 94 H Respiratory Rate Blood Pressure O2 Sat by Pulse 100 100 99 Oximetry 07/06/19 07/06/19 07/06/19 16:59 17:04 17:09 Temperature Pulse Rate 105 H 102 H 94 H Respiratory Rate Blood Pressure O2 Sat by Pulse 99 99 99 Oximetry 07/06/19 07/06/19 07/06/19 17:11 17:14 17:19 Temperature 98.8 F Pulse Rate 93 H 92 H 93 H Respiratory 22 Rate Blood Pressure O2 Sat by Pulse 99 100 100 Oximetry 07/06/19 07/06/19 07/06/19 17:22 17:24 17:52 Temperature Pulse Rate 100 H 99 H 99 H Respiratory Rate Blood Pressure 150/91 O2 Sat by Pulse 100 99 Oximetry 07/06/19 07/06/19 07/06/19 17:54 17:57 17:58 Temperature Pulse Rate 103 H 92 H 97 H Respiratory Rate Blood Pressure 142/81 O2 Sat by Pulse 79 L 98 Oximetry 07/06/19 07/06/19 07/06/19 18:02 18:07 18:12 Temperature Pulse Rate 91 H 84 88 Respiratory Rate Blood Pressure O2 Sat by Pulse 100 98 97 Oximetry 07/06/19 07/06/19 07/06/19 18:17 18:22 18:27 Temperature Pulse Rate 87 95 H 90 Respiratory Rate Blood Pressure O2 Sat by Pulse 98 99 97 Oximetry 07/06/19 07/06/19 07/06/19 18:28 18:32 18:37 Temperature Pulse Rate 96 H 89 83 Respiratory Rate Blood Pressure 131/79 O2 Sat by Pulse 85 98 99 Oximetry 07/06/19 07/06/19 07/06/19 18:42 18:47 18:52 Temperature Pulse Rate 86 85 84 Respiratory Rate Blood Pressure O2 Sat by Pulse 100 99 99 Oximetry 07/06/19 07/06/19 07/06/19 18:57 18:58 19:02 Temperature Pulse Rate 89 38 L 84 Respiratory Rate Blood Pressure O2 Sat by Pulse 100 81 L 99 Oximetry 07/06/19 07/06/19 07/06/19 19:07 19:12 19:17 Temperature Pulse Rate 80 77 77 Respiratory Rate Blood Pressure 146/80 O2 Sat by Pulse 99 100 100 Oximetry 07/06/19 07/06/19 07/06/19 19:22 19:27 19:32 Temperature Pulse Rate 80 84 83 Respiratory Rate Blood Pressure O2 Sat by Pulse 100 100 100 Oximetry 05/28/20 05/28/20 05/28/20 19:37 19:38 19:42 Temperature Pulse Rate 89 85 81 Respiratory Rate Blood Pressure 144/85 O2 Sat by Pulse 100 100 Oximetry 07/06/19 07/06/19 07/06/19 19:47 19:52 19:57 Temperature Pulse Rate 88 91 H 87 Respiratory Rate Blood Pressure O2 Sat by Pulse 100 99 100 Oximetry 07/06/19 07/06/19 07/06/19 20:00 20:02 20:07 Temperature 98.0 F Pulse Rate 89 83 Respiratory 18 Rate Blood Pressure O2 Sat by Pulse 100 100 Oximetry 07/06/19 07/06/19 07/06/19 20:08 20:12 20:17 Temperature Pulse Rate 90 78 81 Respiratory Rate Blood Pressure 136/92 O2 Sat by Pulse 98 98 Oximetry 07/06/19 07/06/19 07/06/19 20:22 20:27 20:32 Temperature Pulse Rate 80 82 88 Respiratory Rate Blood Pressure O2 Sat by Pulse 98 99 96 Oximetry 07/06/19 07/06/19 07/06/19 20:37 20:43 20:47 Temperature Pulse Rate 85 82 86 Respiratory Rate Blood Pressure O2 Sat by Pulse 98 99 100 Oximetry 07/06/19 07/06/19 07/06/19 20:49 21:37 22:07 Temperature Pulse Rate 62 90 85 Respiratory Rate Blood Pressure 134/79 164/85 O2 Sat by Pulse 87 Oximetry 07/06/19 07/06/19 07/06/19 22:37 22:46 23:07 Temperature Pulse Rate 89 81 76 Respiratory Rate Blood Pressure 169/86 149/75 163/90 O2 Sat by Pulse Oximetry 07/06/19 07/07/19 07/07/19 23:20 00:10 00:15 Temperature Pulse Rate 87 73 87 Respiratory Rate Blood Pressure O2 Sat by Pulse 97 99 99 Oximetry 07/07/19 07/07/19 07/07/19 00:20 00:25 00:30 Temperature Pulse Rate 80 71 76 Respiratory Rate Blood Pressure O2 Sat by Pulse 100 100 99 Oximetry 07/07/19 00:35 Temperature Pulse Rate 76 Respiratory Rate Blood Pressure O2 Sat by Pulse 100 Oximetry - Exam Breasts: deferred Abdomen: Present: soft Vulva: both: normal Uterus: Present: normal, other (gravid) FHR: category 1 Uterine Contraction Monitor Mode: Internal Cervical Dilatation: 5 Cervical Effacement Percentage: 60 station: -2 Uterine Contraction Pattern: Irregular Uterine Tone Measurement Phase: Resting Uterine Contraction Intensity: Moderate Extremities: normal - Labs Labs: Abnormal Labs 07/06/19 07/06/19 12:05 Unknown Creatinine 0.3 L Ur Specific [place] 1.034 H Urine WBC (Auto) 17.0 H U Epithel Cells (Auto) 30.0 H Laboratory Results - last 24 hr 07/06/19 07/06/19 07/06/19 12:05 12:05 12:44 WBC 11.0 RBC 4.01 Hgb 11.1 Hct 33.8 MCV 84 MCH 28 MCHC 33 RDW 14.2 Plt Count 367 Potassium 4.0 Creatinine 0.3 L Estimated GFR > 60 POC Glucose 79 Uric Acid 5.1 AST 12 ALT 9 Lactate Dehydrogenase 122 Urine Color Urine Turbidity Urine pH Ur Specific [place] Urine Protein Urine Glucose (UA) Urine Ketones Urine Blood Urine Nitrite Urine Bilirubin Urine Urobilinogen Ur Leukocyte Esterase Urine WBC (Auto) Urine RBC (Auto) U Epithel Cells (Auto) Urine Mucus Urine Opiates Screen Urine Methadone Screen Ur Barbiturates Screen Ur Phencyclidine Scrn Ur Amphetamines Screen U Benzodiazepines Scrn Urine Cocaine Screen U Marijuana (THC) Screen Drugs of Abuse Note Blood Type Antibody Screen 07/06/19 07/06/19 07/06/19 13:53 22:46 Unknown WBC RBC Hgb Hct MCV MCH MCHC RDW Plt Count Potassium Creatinine Estimated GFR POC Glucose 70 Uric Acid AST ALT Lactate Dehydrogenase Urine Color Aisha Urine Turbidity Slightly-cloudy Urine pH 5.0 Ur Specific [place] 1.034 H Urine Protein 30 mg/dl Urine Glucose (UA) Neg Urine Ketones Neg Urine Blood Neg Urine Nitrite Neg Urine Bilirubin Neg Urine Urobilinogen 2.0 Ur Leukocyte Esterase Mod Urine WBC (Auto) 17.0 H Urine RBC (Auto) 4.0 U Epithel Cells (Auto) 30.0 H Urine Mucus 3+ Urine Opiates Screen Urine Methadone Screen Ur Barbiturates Screen Ur Phencyclidine Scrn Ur Amphetamines Screen U Benzodiazepines Scrn Urine Cocaine Screen U Marijuana (THC) Screen Drugs of Abuse Note Blood Type O POSITIVE Antibody Screen Negative 07/06/19 Unknown WBC RBC Hgb Hct MCV MCH MCHC RDW Plt Count Potassium Creatinine Estimated GFR POC Glucose Uric Acid AST ALT Lactate Dehydrogenase Urine Color Urine Turbidity Urine pH Ur Specific [place] Urine Protein Urine Glucose (UA) Urine Ketones Urine Blood Urine Nitrite Urine Bilirubin Urine Urobilinogen Ur Leukocyte Esterase Urine WBC (Auto) Urine RBC (Auto) U Epithel Cells (Auto) Urine Mucus Urine Opiates Screen Presumptive negative Urine Methadone Screen Presumptive negative Ur Barbiturates Screen Presumptive negative Ur Phencyclidine Scrn Presumptive negative Ur Amphetamines Screen Presumptive negative U Benzodiazepines Scrn Presumptive negative Urine Cocaine Screen Presumptive negative U Marijuana (THC) Screen Presumptive positive Drugs of Abuse Note Disclamer Blood Type Antibody Screen
[2019-07-07] MEDS: BUTORPHANOL 2 MG/1 ML INJ IV PRN (01:29)
[2019-07-07] MEDS ORDERED: DEXMEDETOMIDINE 200 MCG/2 ML VIAL IV ONE (02:15)
[2019-07-07] MEDS ORDERED: fentaNYL-BUPIV 2 MCG/ML-0.125% 200 MCG/100 ML BAG EPIDURAL ONE (02:15)
--- NOTE | 2019-07-07 02:37 | Anesthesia Consultation ---
Anesthesia Consult and Med Hx Date of service: 07/07/19 - Airway Anesthetic Teeth Evaluation: Good ROM Head & Neck: Adequate Mental/Hyoid Distance: Adequate Mallampati Class: Class II Intubation Access Assessment: Probably Good - Pulmonary Exam CTA: Yes - Cardiac Exam Cardiac Exam: RRR - Pre-Operative Health Status ASA Pre-Surgery Classification: ASA3 Proposed Anesthetic Plan: Epidural - Pulmonary Hx Smoking: Yes (1-2 PPD) Hx Asthma: No COPD: No Hx Pneumonia: No - Cardiovascular System Hx Hypertension: Yes - Central Nervous System Hx Seizures: No Hx Psychiatric Problems: No - Gastrointestinal Hx Gastroesophageal Reflux Disease: No - Endocrine Hx Renal Disease: No Hx End Stage Renal Disease: No Hx Non-Insulin Dependent Diabetes: Yes Hx Hypothyroidism: No Hx Hyperthyroidism: No - Hematic Hx Anemia: No Hx Sickle Cell Disease: No - Other Systems Hx Alcohol Use: No Hx Substance Use: Yes (MARIJUANA AND COCAINE (01/25/14)) Hx Obesity: Yes
[2019-07-07] MEDS ORDERED: ePHEDrine SULFATE 50 MG/1 ML INJ IV PRN (02:38)
[2019-07-07] MEDS ORDERED: NALOXONE 2 MG/2 ML INJ IV PRN (02:38)
--- NOTE | 2019-07-07 02:39 | Progress Note ---
Labor Epidural - Labor Epidural Start Time: 02:16 Stop Time: 02:27 Performed by:: DOLORES CARDOZA Procedure: Patient is requesting epidural for labor pain. H&P, and labs reviewed. Procedure explained, questions answered, consent obtained. Patient in sitting position with blood pressure cuff and pulse ox on and working. Timeout performed immediately before start of procedure. Sterile betadine prep/drape. 3 mL 1% lidocaine skin wheal at L[3]-L[4]. 18-gauge Touhy epidural needle advanced to [id number] with saline at 10 cm. Epidural dexmedetomidine [30] mcg administered. Epidural catheter advanced to 15 cm, negative aspiration for blood and csf, negative test dose 3 ml 1.5% lidocaine with epinephrine. Sterile steri-strips and tegaderm applied, followed by tape reinforcement. Patient tolerated procedure well.
[2019-07-07] MEDS ORDERED: fentaNYL-BUPIV 2 MCG/ML-0.125% 200 MCG/100 ML BAG EPIDURAL SCH (03:00)
--- NOTE | 2019-07-07 03:19 | Procedure Note ---
OB Delivery Note - Delivery Date of Delivery: 07/07/19 Surgeon: MICHELA MCMANUS Estimated blood loss: 100cc - Vaginal Delivery presentation: vertex Delivery position: OA Intrapartum events: meconium Delivery induction: misoprostol Delivery augmentation: rupture of membranes, pitocin Delivery monitor: external FHT, internal FHT, internal uterine Route of delivery: Delivery placenta: spontaneous Delivery cord: 3 umbilical vessels Episiotomy: none Delivery laceration: none Anesthesia: intravenous, epidural Delivery comments: Called to pt's rm for delivery. Pt found to be 10/100%/+2 and pushing. of viable female in OA position. Terminal mec noted. Spontaneous delivery of 's head and shoulders delivered with ease. placed on mother's chest/abd after delivery for skin to skin bonding. 8/9. Delayed cord clamping then cord was clamped times 2 then cut by FOB. Infant given to awaiting NICU nurse. Placenta delivered spontaneously and intact with CVX3 noted. FF@ u1 with fundal massage and IV Pitocin. Exploration of tears revealed none. EBL 100cc. Mom and baby stable. - A at 1 minute: 8 at 5 minutes: 9 Gender: Female (wt [id number] GMS)
[2019-07-07] MEDS ORDERED: LANOLIN/ZINC/DIMETHICONE (LANSINOH) 7 GM TP PRN (03:36)
[2019-07-07] MEDS ORDERED: MAGNESIUM HYDROXIDE (MOM) ORAL LIQD UDC PO PRN (03:36)
[2019-07-07] MEDS ORDERED: ONDANSETRON 4 MG/2 ML INJ IV PRN (03:36)
[2019-07-07] MEDS ORDERED: WITCH HAZEL/ GLYCERIN PAD TP PRN (03:36)
[2019-07-07] MEDS ORDERED: PROMETHAZINE 25 MG RECT SUPP PR PRN (03:36)
[2019-07-07] MEDS ORDERED: PROMETHAZINE 25 MG TAB PO PRN (03:36)
[2019-07-07] MEDS: OXYTOCIN 20 UNIT/1000ML DRIP 20 UNITS/1,000 ML BAG IV SCH ×2 (04:04→04:18)
[2019-07-07] MEDS: IBUPROFEN 600 MG TAB PO SCH ×3 (04:13→23:40)
[2019-07-07] MEDS: oxyCODONE /ACETAMINOPHEN 5-325MG TAB PO PRN ×3 (06:01→19:55)
[2019-07-07] MEDS ORDERED: ASPIRIN EC 81 MG TAB PO SCH (10:00)
[2019-07-07] MEDS: PRENATAL VIT27-FE FUMARATE-FOLIC ACID VIT TAB PO SCH (11:00)
--- NOTE | 2019-07-07 11:01 | Ultrasound Report ---
US pelvic complete INDICATION / CLINICAL INFORMATION: Right lower quadrant pain. 12 hours . COMPARISON: OB ultrasound dated December 2018 FINDINGS: Enlarged uterus. Endometrial canal is normally prominent, measuring 2 cm in thickness. Right ovary has been removed. Left ovary could not be identified. No obvious abnormal mass or free fl uid. IMPRESSION: 1. No acute abnormalities. Normal-appearing uterus. Signer Name: Juarez Tompkins MD Signed: 07/07/2019 10:57 AM Workstation Name: [email or web address]
[2019-07-07] MEDS: SULFAMETHOXAZOLE/TRIMETHOPRIM 800/160MG DS TAB PO SCH ×2 (13:25→21:42)
[2019-07-07] MEDS: CALCIUM CARBONATE 500 MG TAB CHEW PO SCH ×2 (13:25→21:42)
[2019-07-07 15:48] LABS: Hematocrit 30.1 % (30.3-42.9); Hemoglobin 10.1 gm/dl (10.1-14.3)
--- NOTE | 2019-07-07 19:45 | Post Anesthesia Evaluation ---
- Post Anesthesia Evaluation Patient Participated: Yes Airway Patent: Yes Stable Respiratory Function: Yes Nausea/Vomiting: No Temp > 96.8F: Yes Pain Manageable: Yes Adequeate Hydration: Yes Anesthesia Complications: No Block Receding Appropriately: Yes
[2019-07-08] MEDS: oxyCODONE /ACETAMINOPHEN 5-325MG TAB PO PRN (02:09)
[2019-07-08] MEDS: diphenhydrAMINE 25 MG CAP PO PRN (06:03)
[2019-07-08] MEDS: IBUPROFEN 600 MG TAB PO SCH ×5 (06:03→23:56)
[2019-07-08] MEDS: HYDROcodone/ACETAMINOPHEN 5-325 MG TAB PO PRN ×2 (07:56→16:07)
[2019-07-08] MEDS ORDERED: FLEET ENEMA PR ONE (08:00)
[2019-07-08] MEDS: DOCUSATE SODIUM 100 MG CAP PO SCH ×2 (09:32→21:56)
[2019-07-08] MEDS: SULFAMETHOXAZOLE/TRIMETHOPRIM 800/160MG DS TAB PO SCH ×2 (09:32→21:56)
[2019-07-08] MEDS: PRENATAL VIT27-FE FUMARATE-FOLIC ACID VIT TAB PO SCH (09:32)
--- NOTE | 2019-07-08 09:47 | Progress Note ---
Assessment and Plan A: day 1 S/P . Anemia. Constipation. P: Colace and iron supplements ordered. Encouraged patient to ambulate. Drink warm liquids. Fleet enema times 1 if desired by pt. Subjective - Subjective Date of service: 07/08/19 Principal diagnosis: day 1 S/P Interval history: day 1 S/P . Pt. reports constipation. States she hasn't had a bowel movement in 3-4 days, feeling uncomfortable. Passing gas. Voiding without difficulty. Small amount of lochia. Patient reports: appetite normal, voiding normally, pain well controlled, flatus, ambulating normally, no dizzy ambulation, no bowel movement, no nauseated [place]: doing well Objective - Vital Signs Latest vital signs: Vital Signs Temp Pulse Resp BP BP Pulse Ox 07/08/19 09:32 95 H 141/84 07/08/19 08:38 97.6 F 95 H 20 141/84 97 07/07/19 23:54 97.9 F 87 20 133/66 97 07/07/19 21:42 95 H 130/80 07/07/19 18:00 98.4 F 93 H 16 143/83 95 07/07/19 11:57 97.3 F L 97 H 14 139/77 99 07/07/19 11:00 91 H 125/69 Intake and Output 07/07/19 07/08/19 07/08/19 23:59 07:59 15:59 Intake Total 720 240 240 Balance 720 240 240 Intake: Oral 720 240 240 Other: Total, Intake Amount 240 240 240 Voiding Method Toilet # Voids 2 Void 1 1 1 - Exam Abdomen: Present: normal appearance, soft, normal bowel sounds. Absent: distention, tenderness, guarding, rigidity Uterus: Present: normal, firm, fundal height below umbilicus. Absent: bogginess, tenderness Extremities: Present: normal. Absent: tenderness, edema - Labs Labs: Abnormal lab results 07/07/19 07/07/19 Range/Units 15:28 19:01 Hct 30.1 L (30.3-42.9) % POC Glucose 125 H (70-105)
[2019-07-08] MEDS: CALCIUM CARBONATE 500 MG TAB CHEW PO SCH ×2 (11:32→21:55)
[2019-07-08] MEDS: FERROUS SULFATE 325 MG TAB PO SCH (11:44)
[2019-07-08] MEDS: ACETAMINOPHEN 325 MG TAB PO PRN (21:56)
[2019-07-09] MEDS: HYDROcodone/ACETAMINOPHEN 5-325 MG TAB PO PRN ×3 (01:18→20:46)
[2019-07-09] MEDS: diphenhydrAMINE 25 MG CAP PO PRN (01:18)
[2019-07-09] MEDS: IBUPROFEN 600 MG TAB PO SCH ×4 (05:48→22:55)
[2019-07-09] MEDS: ACETAMINOPHEN 325 MG TAB PO PRN (06:52)
[2019-07-09] MEDS: DOCUSATE SODIUM 100 MG CAP PO SCH ×2 (09:22→22:55)
[2019-07-09] MEDS: FERROUS SULFATE 325 MG TAB PO SCH (09:22)
[2019-07-09] MEDS: PRENATAL VIT27-FE FUMARATE-FOLIC ACID VIT TAB PO SCH (09:22)
[2019-07-09] MEDS: CALCIUM CARBONATE 500 MG TAB CHEW PO SCH (09:23)
[2019-07-09] MEDS: SULFAMETHOXAZOLE/TRIMETHOPRIM 800/160MG DS TAB PO SCH ×2 (09:23→22:13)
--- NOTE | 2019-07-09 10:41 | Progress Note ---
Assessment and Plan A: day 2 S/P . Chronic hypertension. Anemia. P: Continue iron supplements. Continue stool softeners. Change Labetalol to 100 mg po TID. Anticipate discharge tomorrow if patient continues to do well. Subjective - Subjective Date of service: 07/09/19 Principal diagnosis: day 2 S/P Interval history: day 2 S/P . Patient is feeling better after having BM times 2. Patient denies headache, visual disturbance, or N/V. Patient reports: appetite normal, voiding normally, pain well controlled, flatus, bowel movement, ambulating normally, no dizzy ambulation, no nauseated Olin: doing well Objective - Vital Signs Latest vital signs: Vital Signs Temp Pulse Resp BP Pulse Ox 07/09/19 09:24 18 07/09/19 09:22 94 H 139/81 07/09/19 08:01 97.7 F 94 H 18 139/81 95 07/09/19 01:29 97.9 F 94 H 20 140/81 98 07/08/19 21:57 90 154/93 07/08/19 15:36 98.2 F 94 H 22 119/62 98 Intake and Output 07/08/19 07/09/19 07/09/19 23:59 07:59 15:59 Intake Total 840 240 Balance 840 240 Intake: Oral 600 240 Intake, Free Water 240 Other: Total, Intake Amount 240 240 # Voids Void 1 1 - Exam Cardiovascular: Present: Regular rate, Normal S1, Normal S2, No murmurs Lungs: Present: Clear to auscultation Abdomen: Present: normal appearance, soft, normal bowel sounds. Absent: distention, tenderness, guarding, rigidity Uterus: Present: normal, firm, fundal height below umbilicus. Absent: bogginess, tenderness Extremities: Present: normal. Absent: tenderness, edema
[2019-07-10] MEDS: CALCIUM CARBONATE 500 MG TAB CHEW PO SCH ×3 (04:48→09:56)
[2019-07-10] MEDS: HYDROcodone/ACETAMINOPHEN 5-325 MG TAB PO PRN (04:49)
--- NOTE | 2019-07-10 07:55 | Progress Note ---
Assessment and Plan A: day 3 S/P . Class 3 obesity. GDM. Chronic hypertension controlled on Labetalol. Anemia. P: Discharge patient home today. Advised pt. to continue taking her vitamin, iron supplements, and Labetalol 100 mg po TID at home (pt. states she has plenty of all of these medications at home). Advised pt. to avoid interco urse, lifting, housework. discharge instructions and warning signs discussed with pt. in detail. Advised pt. to follow up at [facility] in 1 week. Pt. to call for appointment. Patient voiced understanding of all instructions. Subjective - Subjective Date of service: 07/10/19 Principal diagnosis: day 3 S/P Interval history: day 3 S/P . Morbid obesity. GDM. Chronic hypertension, controlled on Labetalol 100 mg po TID. Pt. desires discharge home today. Patient reports: appetite normal, voiding normally, pain well controlled, flatus, bowel movement, ambulating normally, no dizzy ambulation, no nauseated : doing well Objective - Vital Signs Latest vital signs: Vital Signs Temp Pulse Resp BP Pulse Ox 07/10/19 01:09 97.9 F 87 18 122/81 99 07/09/19 22:13 97.3 F L 98 H 18 125/62 99 07/09/19 22:12 97 H 125/62 07/09/19 17:19 18 07/09/19 16:09 98.0 F 93 H 18 131/72 98 07/09/19 13:08 95 H 144/76 07/09/19 13:00 18 07/09/19 09:24 18 07/09/19 09:22 94 H 139/81 07/09/19 08:01 97.7 F 94 H 18 139/81 95 Intake and Output 07/09/19 07/09/19 07/10/19 15:59 23:59 07:59 Intake Total 480 480 Balance 480 480 Intake: Intake, Free Water 480 480 Other: # Voids Void 2 1 - Exam Cardiovascular: Present: Regular rate, Normal S1, Normal S2, No murmurs Lungs: Present: Clear to auscultation Abdomen: Present: normal appearance, soft, normal bowel sounds. Absent: distention, tenderness, guarding, rigidity Uterus: Present: normal, firm, fundal height below umbilicus. Absent: bogginess, tenderness Extremities: Present: normal. Absent: tenderness, edema
--- NOTE | 2019-07-10 07:58 | Discharge Summary ---
Providers - Providers Date of Admission: 07/06/19 11:39 Date of discharge: 07/10/19 Attending physician: NILTON MELGAR MD [facility] Reason for admission: induction of labor Delivery: Other procedures: none complications: none Discharge diagnosis: IUP at term delivered baby: female Pertinent studies: Labs Hospital course: Normal hospital course Condition at discharge: Good Disposition: DC-[id number] TO HOME OR SELFCARE - Discharge Diagnoses (1) Term delivered Status: Acute (2) Anemia Status: Acute (3) Obesity Status: Acute (4) Chronic hypertension Status: Acute Plan - Provider Discharge Summary Activity: routine, no sex for 6 weeks, no heavy lifting 4 weeks, no strenuous exercise Diet: routine Instructions: routine Additional instructions: Continue taking your vitamins, iron supplements, and Labetalol 100 mg po every 8 hours at home. Call your doctor immediately for: * Fever > 100.5 * Heavy vaginal bleeding ( >1 pad per hour) * Severe persistent headache * Shortness of breath * Reddened, hot, painful area to leg or breast - Follow up plan Follow up: VAISHALI LEONG MD [Staff Physician] - 7 Days Forms: [facility] Discharge Summary
[2019-07-10] MEDS: FERROUS SULFATE 325 MG TAB PO SCH (09:55)
[2019-07-10] MEDS: PRENATAL VIT27-FE FUMARATE-FOLIC ACID VIT TAB PO SCH (09:56)
[2019-07-10] MEDS: SULFAMETHOXAZOLE/TRIMETHOPRIM 800/160MG DS TAB PO SCH (09:56)
[2019-07-10] MEDS: DOCUSATE SODIUM 100 MG CAP PO SCH (09:56)
[2019-07-10] MEDS: IBUPROFEN 600 MG TAB PO SCH (09:57)
[2019-07-10 12:36] VITALS: BP 152/87
== END 2019-07-10 11:55 | disposition home or self-care (01) | DRG 774 ==
LOC: TRG 11:15 → APU 11:20 → TRG 11:36 → LD 11:39 → OB 07-07 04:57
PROVIDERS: ADMIT Obstetrics & Gynecology; ATTEND Obstetrics & Gynecology
PROC: 10E0XZZ Delivery of Products of Conception, External Approach (ICD-10-PCS; principal; 2019-07-07)
PROC: 3E0R3BZ Introduction of Anesthetic Agent into Spinal Canal, Percutaneous Approach (ICD-10-PCS; 2019-07-07)
PROC: 00HU33Z Insertion of Infusion Device into Spinal Canal, Percutaneous Approach (ICD-10-PCS; 2019-07-07)
PROC: 3E033VJ Introduction of Other Hormone into Peripheral Vein, Percutaneous Approach (ICD-10-PCS; 2019-07-07)
PROC: 0UH97HZ Insertion of Contraceptive Device into Uterus, Via Natural or Artificial Opening (ICD-10-PCS; 2019-07-07)
DX: O24.429 Gestational diabetes mellitus in childbirth, unspecified control (principal); O10.92 Unspecified pre-existing hypertension complicating childbirth; O98.52 Other viral diseases complicating childbirth; O99.214 Obesity complicating childbirth; E66.9 Obesity, unspecified; O99.334 Smoking (tobacco) complicating childbirth; F17.210 Nicotine dependence, cigarettes, uncomplicated; O77.0 Labor and delivery complicated by meconium in amniotic fluid; O99.62 Diseases of the digestive system complicating childbirth; B00.9 Herpesviral infection, unspecified; K59.00 Constipation, unspecified; O90.81 Anemia of the puerperium; D64.9 Anemia, unspecified; Z3A.37 37 weeks gestation of pregnancy; Z37.0 Single live birth; Z88.0 Allergy status to penicillin; Z71.6 Tobacco abuse counseling; Z91.14 Patient's other noncompliance with medication regimen; Z93.50 Unspecified cystostomy status; Z83.3 Family history of diabetes mellitus; Z82.49 Family history of ischemic heart disease and other diseases of the circulatory system; Z88.8 Allergy status to other drugs, medicaments and biological substances
CPT/HCPCS: 36415; 76856; 80307; 81001; 82565; 82962; 83615; 84132; 84450; 84460; 84550; 85014; 85018; 85027; 86850; 86900; 86901; 87086; 99406; G0378; A6250; J0595; J2405; J2590; J3490; J7120

== ENCOUNTER 2019-10-20 23:33 | Emergency (ER) | payer MEDICAID ==
[2019-10-21] MEDS ORDERED: cloNIDine 0.1 MG TAB PO ONE (01:41)
--- NOTE | 2019-10-21 01:46 | Emergency Department Report ---
ED General Adult HPI - General Chief complaint: High BP Stated complaint: HEADACHE, BILATERAL EAR PAIN PUI?: No Time Seen by Provider: 10/21/19 01:42 Source: patient, RN notes reviewed, old records reviewed Mode of arrival: Ambulatory Limitations: No Limitations - History of Present Illness Initial comments: Patient is a 34-year-old female that presents emergency room with complaints of headache and ear pain and high blood pressure x2 days. Patient states she is on labetalol 200 mg 3 times a day but the blood pressure medication is not working. Patient states she wants to go back on Norvasc 10 mg. Patient states she was put on labetalol for . Patient states she delivered in June. Patient states she came back after delivery was admitted here for preeclampsia patient states that while she is taking labetalol her blood pressure is 140/100 on average. Patient denies blurry vision. Patient denies swelling in her legs. Patient denies chest pain or shortness of breath. Patient denies fever and chills. Patient denies anxiety. Patient denies diaphoresis. Patient states her headache is a 10 out of 10. Patient states it is a sinus headache. Patient states the headache is in the frontal and maxillary region. Patient also complains of ear pain. Patient states her bilateral ears. Patient states the pain is better with rest and worse with movement. Patient denies recent travel. Patient denies recent international travel. Patient denies exposure to the novel coronavirus. Patient denies sick contacts. Patient denies fever and chills. Patient denies cough. Patient denies diarrhea. Patient denies coming in contact with anybody with symptoms of the novel coronavirus. -: Sudden Location: head Severity scale (0 -10): 10 Quality: stabbing Consistency: constant Improves with: rest Worsens with: movement Associated Symptoms: headaches. denies: confusion, chest pain, cough, diaphoresis, fever/chills, loss of appetite, malaise, nausea/vomiting, rash, seizure, shortness of breath, syncope, weakness Treatments Prior to Arrival: NSAID - Related Data Home Medications Medication Instructions Recorded Confirmed Last Taken Aspirin BABY CHEW TAB 81 mg PO 1XW 07/07/19 07/11/19 07/05/19 labetaloL [Labetalol 100mg TAB] 100 mg PO BID 05/29/20 06/02/20 05/28/20 metFORMIN 500 mg PO BID MDD 500 07/07/19 07/11/19 07/06/19 Previous Rx's Medication Instructions Recorded Last Taken Type Amlodipine Besylate [Norvasc] 10 mg PO DAILY 30 Days #30 tablet 10/21/19 Unknown Rx Sulfamethoxazole/Trimethoprim 1 each PO BID 10 Days #20 tablet 10/21/19 Unknown Rx [Bactrim DS TAB] methylPREDNISolone [Medrol 4MG 4 mg PO DAILY 6 Days #1 tab.ds.pk 10/21/19 Unknown Rx DOSEPAK (21 tabs)] Allergies Allergy/AdvReac Type Severity Reaction Status Date / Time Penicillins Allergy Severe Hives Verified 07/06/19 11:50 Iodine and Iodide Containing Allergy Hives Verified 07/11/19 12:08 Produc ED Review of Systems ROS: Stated complaint: HEADACHE, BILATERAL EAR PAIN Other details as noted in HPI Constitutional: denies: chills, fever Eyes: denies: eye pain, eye discharge, vision change ENT: as per HPI, ear pain. denies: throat pain Respiratory: denies: cough, shortness of breath, wheezing Cardiovascular: denies: chest pain, palpitations Endocrine: no symptoms reported Gastrointestinal: denies: abdominal pain, nausea, diarrhea Genitourinary: denies: urgency, dysuria, discharge Musculoskeletal: denies: back pain, joint swelling, arthralgia Skin: denies: rash, lesions Neurological: as per HPI, headache. denies: weakness, numbness, paresthesias, confusion, abnormal gait, vertigo Psychiatric: denies: anxiety, depression Hematological/Lymphatic: denies: easy bleeding, easy bruising ED Past Medical Hx - Past Medical History Previous Medical History?: Yes Hx Hypertension: Yes Hx Congestive Heart Failure: No Hx Diabetes: No Hx Deep Vein Thrombosis: No Hx Renal Disease: No Hx Sickle Cell Disease: No Hx Seizures: No Hx Asthma: No Hx COPD: No Hx HIV: No Additional medical history: Vaginal delivery X 2, Morbid Obesity, Post Eclampsia - Surgical History Past Surgical History?: Yes Additional Surgical History: right ovary removed - Family History Family history: no significant - Social History Smoking Status: Never Smoker Substance Use Type: None - Medications Home Medications: Home Medications Medication Instructions Recorded Confirmed Last Taken Type Aspirin BABY CHEW TAB 81 mg PO 1XW 07/07/19 07/11/19 07/05/19 History labetaloL [Labetalol 100mg TAB] 100 mg PO BID 07/07/19 07/11/19 07/06/19 History metFORMIN 500 mg PO BID MDD 500 07/07/19 07/11/19 07/06/19 History Amlodipine Besylate [Norvasc] 10 mg PO DAILY 30 Days #30 tablet 10/21/19 Unknown Rx Sulfamethoxazole/Trimethoprim 1 each PO BID 10 Days #20 tablet 10/21/19 Unknown Rx [Bactrim DS TAB] methylPREDNISolone [Medrol 4MG 4 mg PO DAILY 6 Days #1 tab.ds.pk 10/21/19 Unknown Rx DOSEPAK (21 tabs)] ED Physical Exam - General Limitations: No Limitations General appearance: alert, in no apparent distress - Head Head exam: Present: atraumatic, normocephalic - Eye Eye exam: Present: normal appearance - ENT ENT exam: Present: mucous membranes moist, other (Enlarged purulent nasal turbinates. Sinus tenderness to palpation.) - Neck Neck exam: Present: normal inspection - Respiratory Respiratory exam: Present: normal lung sounds bilaterally. Absent: respiratory distress - Cardiovascular Cardiovascular Exam: Present: regular rate, normal rhythm. Absent: systolic murmur, diastolic murmur, rubs, gallop - GI/Abdominal GI/Abdominal exam: Present: soft, normal bowel sounds - Extremities Exam Extremities exam: Present: normal inspection - Back Exam Back exam: Present: normal inspection - Neurological Exam Neurological exam: Present: alert, oriented X3 - Psychiatric Psychiatric exam: Present: normal affect, normal mood - Skin Skin exam: Present: warm, dry, intact, normal color. Absent: rash ED Course Vital Signs 10/21/19 10/21/19 10/21/19 00:16 01:55 02:36 Temperature 98.3 F 98.1 F Pulse Rate 84 80 80 Respiratory 18 18 Rate Blood Pressure 197/119 177/107 Blood Pressure 186/111 [Left] O2 Sat by Pulse 100 100 Oximetry 10/21/19 10/21/19 10/21/19 02:54 03:24 03:56 Temperature 98.1 F Pulse Rate 72 72 Respiratory 18 16 Rate Blood Pressure Blood Pressure 163/113 169/110 148/98 [Left] O2 Sat by Pulse 98 98 Oximetry - Reevaluation(s) Reevaluation #1: Patient complaining of severe pain. Patient's blood pressure improved a little bit with clonidine. Patient's will be given Dilaudid and Solu-Medrol. 10/21/19 02:27 Reevaluation #2: Patient states her pain is much better. Patient's blood pressures improved. Patient will be given another milligram of Dilaudid and Bactrim. 10/21/19 03:57 Reevaluation #3: Patient states her pain is gone. Patient denies headache. Patient denies blurry vision. Patient states she is feeling much better. Patient blood pressure is controlled. 10/21/19 04:27 Reevaluation #4: Patient states she is pain-free. 10/21/19 05:01 Reevaluation #5: Patient blood pressure much better. Patient's pain has resolved. I discussed all results and clinical findings with patient. I discussed plan of care with patient. Patient agrees with plan of care. Patient is stable for discharge. Patient will be discharged home. Patient given discharge instructio ns. Patient voiced understanding of discharge instructions. 10/21/19 05:58 ED Medical Decision Making - Lab Data Result diagrams: 10/21/19 01:46 10/21/19 01:46 - Radiology Data Radiology results: report reviewed CT head/brain wo con INDICATION: sever bill.. TECHNIQUE: All CT scans at this location are performed using the following dose modulation technique: Automated exposure control. CONTRAST: None. COMPARISON: None available. FINDINGS: The ventricular system is appropriate in size and configuration without midline shift. Negative for mass, stroke or hemorrhage. Imaged bones and paranasal sinuses are unremarkable. IMPRESSION: Negative CT brain without contrast. - Medical Decision Making Patient is a 34-year-old female that presents emergency room with complaints of headache, dizziness, ear pain, sinus headache, uncontrolled blood pressure. Patient given clonidine in the ER and her blood pressure improved. Patient also given pain medications and treatment of her sinusitis and her blood pressure and pain improved. Patient discharged from the ER essentially pain-free. Patient had labs done which were essentially unremarkable. Patient had a head CT done due to the severity of her headache and it was negative for acute findings. Patient on clinical exam found to have sinus tenderness and sinus inflammation. Patient treated for sinusitis with oral antibiotics and Solu- Medrol injection. Patient states stable for discharge. Patient discharged home with new prescription for Norvasc. Patient also discharged with Solu-Medrol Dosepak and oral antibiotics. - Differential Diagnosis Uncontrolled hypertension. Headache, sinus headache, sinusitis, Critical Care Time: Yes Critical care time in (mins) excluding proc time.: 45 Critical care attestation.: If time is entered above; I have spent that time in minutes in the direct care of this critically ill patient, excluding procedure time. Critical Care Time: 45 minutes ED Disposition Clinical Impression: Hypertensive emergency Headache Qualifiers: Headache type: unspecified Headache chronicity pattern: acute headache Intractability: not intractable Qualified Code(s): R51 - Headache Hypertension Qualifiers: Hypertension type: essential hypertension Qualified Code(s): I10 - Essential (primary) hypertension Sinusitis Qualifiers: Sinusitis location: maxillary Chronicity: acute Recurrence: non-recurrent Qualified Code(s): J01.00 - Acute maxillary sinusitis, unspecified Disposition: TO HOME OR SELFCARE Is pt being admited?: No Does the pt Need Aspirin: No Condition: Stable Instructions: Hypertension (ED) Additional Instructions: Patient to follow-up with primary care in 2 to 3 days. Patient to rest. Patient to increase water. Patient to avoid strenuous exercise or heavy lifting until cleared by primary care. Patient to take Tylenol or ibuprofen as needed for pain. Patient to take meds as directed. Patient to return to the ER if condition worsens, changes or new symptoms arise. Prescriptions: Sulfamethoxazole/Trimethoprim [Bactrim DS TAB] 1 each PO BID 10 Days #20 tablet methylPREDNISolone [Medrol 4MG DOSEPAK (21 tabs)] 4 mg PO DAILY 6 Days #1 tab.ds.pk Amlodipine Besylate [Norvasc] 10 mg PO DAILY 30 Days #30 tablet Referrals: PRIMARY MD RICHARD [Primary Care Provider] - 2-3 Days RADHA ZULETA MD [Staff Physician] - 2-3 Days Time of Disposition: 05:58
[2019-10-21 02:15] LABS: Blood Urea Nitrogen 10 mg/dL (7-17); Hemolysis Index 4
[2019-10-21 02:23] LABS: Basophils # (Auto) 0.1 K/mm3 (0.0-0.1); Basophils % (Auto) 0.9 % (0.0-1.8); Eosinophils # (Auto) 0.2 K/mm3 (0.0-0.4); Eosinophils % (Auto) 1.8 % (0.0-4.3); Hematocrit 36.6 % (30.3-42.9); Lymphocytes # (Auto) 3.6 K/mm3 (1.2-5.4); Lymphocytes % (Auto) 39.6 % (13.4-35.0); Mean Corpuscular HGB Conc 33 % (30-34); Mean Corpuscular Volume 85 fl (79-97); Monocytes # (Auto) 0.7 K/mm3 (0.0-0.8); Monocytes % (Auto) 7.5 % (0.0-7.3); Platelet Count 360 K/mm3 (140-440); Red Cell Distribution Width 15.4 % (13.2-15.2)
[2019-10-21] MEDS ORDERED: HYDROmorphone 2 MG/1 ML INJ IV ONE (02:25)
[2019-10-21] MEDS ORDERED: methylPREDNISolone Sod Succinate 125 MG/2 ML INJ IV ONE (02:25)
[2019-10-21 02:35] LABS: BUN/Creatinine Ratio 17
--- NOTE | 2019-10-21 03:10 | Cat Scan Report ---
CT head/brain wo con INDICATION: sever bill.. TECHNIQUE: All CT scans at this location are performed using the following dose modulation technique: Automated exposure control. CONTRAST: None. COMPARISON: None available. FINDINGS: The ventricular system is appropriate in size and configuration without midline shift. Nega tive for mass, stroke or hemorrhage. Imaged bones and paranasal sinuses are unremarkable. IMPRESSION: Negative CT brain without contrast. Signer Name: Luis Valencia MD Signed: 10/21/2019 3:05 AM Workstation Name: [id number]
[2019-10-21] MEDS ORDERED: SULFAMETHOXAZOLE/TRIMETHOPRIM 800/160MG DS TAB PO ONE (03:56)
[2019-10-21] MEDS ORDERED: HYDROmorphone 1 MG/1 ML INJ IV ONE (03:56)
[2019-10-21 03:57] VITALS: BP 148/98
[2019-10-21 05:47] LABS: Bilirubin,Urine NEG (Negative); Blood,Urine NEG (Negative); Color,Urine Yellow (Yellow); Mucus,Urine FEW /HPF; Protein,Urine <15 mg/dL mg/dL (Negative); Urobilinogen,Urine < 2.0 mg/dL (<2.0)
== END 2019-10-21 05:30 | disposition home or self-care (01) ==
LOC: ED 23:33
DX: I16.1 Hypertensive emergency (principal); J01.00 Acute maxillary sinusitis, unspecified; E66.01 Morbid (severe) obesity due to excess calories; Z68.43 Body mass index [BMI] 50.0-59.9, adult; Z88.0 Allergy status to penicillin; Z91.09 Other allergy status, other than to drugs and biological substances
CPT/HCPCS: 36415; 70450; 80048; 81001; 84703; 85025; 96374; 96375; 96376; 99284; J1170; J2930

== ENCOUNTER 2020-08-18 01:59 | Emergency (ER) | payer MEDICAID ==
[2020-08-18] MEDS ORDERED: ASPIRIN 325 MG TAB PO ONE (02:11)
[2020-08-18 02:59] LABS: Basophils # (Auto) 0.1 K/mm3 (0.0-0.1); Eosinophils # (Auto) 0.2 K/mm3 (0.0-0.4); Eosinophils % (Auto) 1.6 % (0.0-4.3); Hematocrit 35.5 % (30.3-42.9); Hemoglobin 12.4 gm/dl (10.1-14.3); Lymphocytes # (Auto) 3.7 K/mm3 (1.2-5.4); Lymphocytes % (Auto) 36.7 % (13.4-35.0); Mean Corpuscular HGB Conc 35 % (30-34); Mean Corpuscular Volume 82 fl (79-97); Monocytes # (Auto) 0.7 K/mm3 (0.0-0.8); Platelet Count 375 K/mm3 (140-440); Red Blood Count 4.35 M/mm3 (3.65-5.03); Red Cell Distribution Width 15.1 % (13.2-15.2)
[2020-08-18] MEDS ORDERED: SODIUM CHLORIDE 0.9% 1000 ML 1,000 ML IV ONE (03:19)
[2020-08-18] MEDS ORDERED: MORPHINE 4 MG/1 ML INJ IV ONE ×2 (03:19→05:15)
[2020-08-18] MEDS ORDERED: ONDANSETRON 4 MG/2 ML INJ IV ONE (03:19)
--- NOTE | 2020-08-18 03:22 | Emergency Department Report ---
ED Chest Pain HPI - General Chief Complaint: Chest Pain Stated Complaint: CHEST PAIN/LT SHOULDER/ARM PAIN Time Seen by Provider: 08/18/20 02:57 Source: patient Mode of arrival: Ambulatory Limitations: No Limitations - History of Present Illness Initial Comments: This is a 34-year-old -[place] female presents to the emergency department from home with complaint of some left-sided chest pain with radiation down the left arm, as well as some shortness of breath, that has been going on since yesterday (Wednesday) morning. However the symptoms have worsened this evening, which is what brought her into be seen. She took some Tylenol for his symptoms without any relief. Patient has a past medical history of hypertension for which she takes amlodipine and HCTZ. She has a heavy tobacco smoker at 1 pack/day, but denies any illicit drug use. No recent travel or sick contacts at home. Patient also has a history of a "clogged duct" in her left breast. She has around her menstrual cycle and feels that her breast is slightly swollen and wonders if this could be adding to her symptoms. Currently the pain is 6 out of 10 in intensity. No known aggravating or alleviating factors. - Related Data Home Medications Medication Instructions Recorded Confirmed Last Taken Aspirin BABY CHEW TAB 81 mg PO 1XW 07/07/19 07/11/19 07/05/19 labetaloL [Labetalol 100mg TAB] 100 mg PO BID 07/07/19 07/11/19 07/06/19 metFORMIN 500 mg PO BID MDD 500 07/07/19 07/11/19 07/06/19 Previous Rx's Medication Instructions Recorded Last Taken Type Amlodipine Besylate [Norvasc] 10 mg PO DAILY 30 Days #30 tablet 10/21/19 Unknown Rx Sulfamethoxazole/Trimethoprim 1 each PO BID 10 Days #20 tablet 10/21/19 Unknown Rx [Bactrim DS TAB] methylPREDNISolone [Medrol 4MG 4 mg PO DAILY 6 Days #1 tab.ds.pk 10/21/19 Unknown Rx DOSEPAK (21 tabs)] Cyclobenzaprine [Flexeril] 10 mg PO TID PRN #12 tablet 08/18/20 Unknown Rx Sulfamethoxazole/Trimethoprim 1 each PO BID #14 tablet 08/18/20 Unknown Rx [Bactrim DS TAB] Allergies Allergy/AdvReac Type Severity Reaction Status Date / Time Penicillins Allergy Severe Hives Verified 08/18/20 04:16 Iodine and Iodide Containing Allergy Hives Verified 08/18/20 04:16 Produc Heart Score - HEART Score History: Slightly suspicious EKG: Normal Age: < 45 Risk factors: 1-2 risk factors Troponin: < normal limit HEART Score: 1 - EKG Read Time Time EKG Completed: 02:10 EKG Read Time: 02:13 ED Review of Systems ROS: Stated complaint: CHEST PAIN/LT SHOULDER/ARM PAIN Other details as noted in HPI Comment: All other systems reviewed and negative Constitutional: denies: chills, fever Eyes: denies: eye pain, vision change ENT: denies: ear pain, throat pain Respiratory: shortness of breath. denies: cough Cardiovascular: chest pain. denies: edema Gastrointestinal: denies: abdominal pain, vomiting Genitourinary: denies: dysuria, discharge Musculoskeletal: myalgia. denies: back pain Skin: denies: rash, lesions Neurological: denies: headache, weakness ED Past Medical Hx - Past Medical History Previous Medical History?: Yes Hx Hypertension: Yes Hx Congestive Heart Failure: No Hx Diabetes: No Hx Deep Vein Thrombosis: No Hx Renal Disease: No Hx Sickle Cell Disease: No Hx Seizures: No Hx Asthma: No Hx COPD: No Hx HIV: No Additional medical history: Vaginal delivery X 2, Morbid Obesity, Post Eclampsia - Surgical History Past Surgical History?: Yes Additional Surgical History: right ovary removed - Social History Smoking Status: Current Every Day Smoker Substance Use Type: Marijuana - Medications Home Medications: Home Medications Medication Instructions Recorded Confirmed Last Taken Type Aspirin BABY CHEW TAB 81 mg PO 1XW 07/07/19 07/11/19 07/05/19 History labetaloL [Labetalol 100mg TAB] 100 mg PO BID 07/07/19 07/11/19 07/06/19 History metFORMIN 500 mg PO BID MDD 500 07/07/19 07/11/19 07/06/19 History Amlodipine Besylate [Norvasc] 10 mg PO DAILY 30 Days #30 tablet 10/21/19 Unkno wn Rx Sulfamethoxazole/Trimethoprim 1 each PO BID 10 Days #20 tablet 10/21/19 Unknown Rx [Bactrim DS TAB] methylPREDNISolone [Medrol 4MG 4 mg PO DAILY 6 Days #1 tab.ds.pk 10/21/19 Unknown Rx DOSEPAK (21 tabs)] Cyclobenzaprine [Flexeril] 10 mg PO TID PRN #12 tablet 08/18/20 Unknown Rx Sulfamethoxazole/Trimethoprim 1 each PO BID #14 tablet 08/18/20 Unknown Rx [Bactrim DS TAB] ED Physical Exam - General Limitations: No Limitations - Other Other exam information: GENERAL: The patient is well-developed well-nourished. HENT: Normocephalic. Atraumatic. Patient has moist mucous membranes. EYES: Extraocular motions are intact. NECK: Supple. Trachea is midline. CHEST/LUNGS: Clear to auscultation. There is no respiratory distress noted. There is some reproducible chest pain to palpation, without crepitus or deformity. HEART/CARDIOVASCULAR: Regular. There is no tachycardia. There is no murmur. ABDOMEN: Abdomen is soft, nontender. Patient has normal bowel sounds. Morbidly obese habitus. SKIN: Skin is warm and dry. NEURO: The patient is awake, alert, and oriented. The patient is cooperative. The patient has no focal neurologic deficits. Normal speech. MUSCULOSKELETAL: There is no tenderness or deformity. There is no limitation range of motion. ED Course Vital Signs 08/18/20 08/18/20 08/18/20 02:02 03:01 03:15 Temperature 98.8 F Pulse Rate 118 H 104 H 98 H Respiratory 18 21 18 Rate Blood Pressure 183/117 125/66 124/75 O2 Sat by Pulse 94 99 99 Oximetry 08/18/20 08/18/20 08/18/20 03:30 03:45 04:01 Temperature Pulse Rate 99 H 100 H 98 H Respiratory 21 28 H 22 Rate Blood Pressure 141/91 148/88 150/102 O2 Sat by Pulse 97 98 99 Oximetry 08/18/20 08/18/20 08/18/20 04:09 04:15 04:31 Temperature Pulse Rate 96 H 94 H Respiratory 18 27 H 23 Rate Blood Pressure 132/82 141/79 O2 Sat by Pulse 96 96 Oximetry 08/18/20 08/18/20 04:39 05:31 Temperature Pulse Rate Respiratory 18 18 Rate Blood Pressure O2 Sat by Pulse Oximetry KHAI score - Khai Score Age > 65: (0) No Aspirin use within the Past 7 Days: (0) No 3 or more CAD Risk Factors: (0) No 2 or more Angina events in past 24 hrs: (1) Yes Known CAD with more than 50% Stenosis: (0) No Elevated Cardiac Markers: (0) No ST Deviation Greater than 0.5mm: (0) No KHAI Score: 1 ED Medical Decision Making - Lab Data Result diagrams: 08/18/20 02:44 08/18/20 02:44 Lab Results 08/18/20 08/18/20 08/18/20 Range/Units 02:44 02:44 02:44 WBC 10.1 (4.5-11.0) K/mm3 RBC 4.35 (3.65-5.03) M/mm3 Hgb 12.4 (10.1-14.3) gm/dl Hct 35.5 (30.3-42.9) % MCV 82 (79-97) fl MCH 29 (28-32) pg MCHC 35 H (30-34) % RDW 15.1 (13.2-15.2) % Plt Count 375 (140-440) K/mm3 Lymph % (Auto) 36.7 H (13.4-35.0) % Laurel % (Auto) 7.0 (0.0-7.3) % Eos % (Auto) 1.6 (0.0-4.3) % Baso % (Auto) 1.0 (0.0-1.8) % Lymph # (Auto) 3.7 (1.2-5.4) K/mm3 Laurel # (Auto) 0.7 (0.0-0.8) K/mm3 Eos # (Auto) 0.2 (0.0-0.4) K/mm3 Baso # (Auto) 0.1 (0.0-0.1) K/mm3 Seg Neutrophils % 53.7 (40.0-70.0) % Seg Neutrophils # 5.4 (1.8-7.7) K/mm3 D-Dimer (0-234) ng/mlDDU Sodium 138 (137-145) mmol/L Potassium 3.7 (3.6-5.0) mmol/L Chloride 101.4 (98-107) mmol/L Carbon Dioxide 26 (22-30) mmol/L Anion Gap 14 mmol/L BUN 9 (7-17) mg/dL Creatinine 0.7 (0.6-1.2) mg/dL Estimated GFR > 60 ml/min BUN/Creatinine Ratio 13 % Glucose 104 H (65-100) mg/dL Calcium 9.0 (8.4-10.2) mg/dL Total Bilirubin 0.20 (0.1-1.2) mg/dL AST 12 (5-40) units/L ALT 6 L (7-56) units/L Alkaline Phosphatase 70 (35-129) units/L Troponin T < 0.010 (0.00-0.029) ng/mL NT-Pro-B Natriuret Pep (0-450) pg/mL Total Protein 7.1 (6.3-8.2) g/dL Albumin 4.0 (3.9-5) g/dL Albumin/Globulin Ratio 1.3 % HCG, Qual Negative (Negative) 08/18/20 08/18/20 Range/Units 03:29 03:29 WBC (4.5-11.0) K/mm3 RBC (3.65-5.03) M/mm3 Hgb (10.1-14.3) gm/dl Hct (30.3-42.9) % MCV (79-97) fl MCH (28-32) pg MCHC (30-34) % RDW (13.2-15.2) % Plt Count (140-440) K/mm3 Lymph % (Auto) (13.4-35.0) % Laurel % (Auto) (0.0-7.3) % Eos % (Auto) (0.0-4.3) % Baso % (Auto) (0.0-1.8) % Lymph # (Auto) (1.2-5.4) K/mm3 Laurel # (Auto) (0.0-0.8) K/mm3 Eos # (Auto) (0.0-0.4) K/mm3 Baso # (Auto) (0.0-0.1) K/mm3 Seg Neutrophils % (40.0-70.0) % Seg Neutrophils # (1.8-7.7) K/mm3 D-Dimer 310.92 H (0-234) ng/mlDDU Sodium (137-145) mmol/L Potassium (3.6-5.0) mmol/L Chloride (98-107) mmol/L Carbon Dioxide (22-30) mmol/L Anion Gap mmol/L BUN (7-17) mg/dL Creatinine (0.6-1.2) mg/dL Estimated GFR ml/min BUN/Creatinine Ratio % Glucose (65-100) mg/dL Calcium (8.4-10.2) mg/dL Total Bilirubin (0.1-1.2) mg/dL AST (5-40) units/L ALT (7-56) units/L Alkaline Phosphatase (35-129) units/L Troponin T (0.00-0.029) ng/mL NT-Pro-B Natriuret Pep 21.57 (0-450) pg/mL Total Protein (6.3-8.2) g/dL Albumin (3.9-5) g/dL Albumin/Globulin Ratio % HCG, Qual (Negative) - EKG Data -: EKG Interpreted by Me EKG shows normal: sinus rhythm, axis, intervals, QRS complexes, ST-T waves Rate: tachycardia (104 bpm) - EKG Data When compared to previous EKG there are: previous EKG unavailable Interpretation: normal EKG (With mild tachycardia) - Radiology Data Radiology results: report reviewed, image reviewed interpreted by me: Chest x-ray does not show any acute process. There are no pleural effusions, obvious pneumonia and there is no pneumothorax. CTA CHEST WITH CONTRAST INDICATION / CLINICAL INFORMATION: CP, SOB, elevated dimer. TECHNIQUE: Axial CT images were obtained through the chest after injection of IV contrast. 3 plane MIP and/or 3D reconstructions were produced. All CT scans at this location are performed using CT dose reduction for ALARA by means of automated exposure control. COMPARISON: CTA of the chest from 07/11/2019 FINDINGS: PULMONARY ARTERIES: No central or segmental pulmonary embolus. THORACIC AORTA: No significant abnormality. HEART: No significant abnormality. ADENOPATHY: Stable shotty left axillary lymph nodes. No new or increasing richa nopathy. LUNGS/PLEURA: No focal airspace consolidation. No pleural effusion. No pneumothorax. ADDITIONAL FINDINGS: None. UPPER ABDOMEN: No acute findings. SKELETAL STRUCTURES: No significant osseous abnormality. IMPRESSION: No acute findings in the chest. No evidence of pulmonary embolus. - Medical Decision Making This patient presents to the emergency department with a complaint of some midsternal to left-sided chest pain with some radiation to the left arm, as well as shortness of breath, that has been going on since Wednesday morning. On examination heart and lung sounds are normal to auscultation. The patient has some reproducible chest wall tenderness to palpation without crepitus or deformity. The patient also mentions that she has been having some increased breast fullness since she was diagnosed with a clogged duct during her last . EKG does not have any morphology consistent with ST elevation myocardial infarction. Chest x-ray does not show any pneumonia, pneumothorax, pleural effusions, widened mediastinum, or any other acute process. Patient's labs have been unremarkable including CBC, metabolic panel, negative troponins and the patient is not . Patient had a slightly elevated and equivocal D-dimer level. For this reason she had a CT angiography of the chest that did not show any pulmonary embolism, dissection, or any other acute process. Vital signs have been reassuring throughout her ED course including being afebrile. The patient is low on the heart and KHAI score. Her contact information has b een sent over to the [facility], and someone from their office should be contacting her shortly for close outpatient follow-up as part of our [facility] low risk chest pain protocol. Given the complaint of breast fullness with some type of clogged duct, the patient is also been given a referral for a local breast surgeon, Dr. Phillips. Patient has been reevaluated multiple times over multiple hours and says that she is feeling improved. She will return to the emergency department with any worsening of her symptoms or with any acute distress. Critical Care Time: No Critical care attestation.: If time is entered above; I have spent that time in minutes in the direct care of this critically ill patient, excluding procedure time. ED Disposition Clinical Impression: Tobacco use, Breast pain, left Chest pain Qualifiers: Chest pain type: unspecified Qualified Code(s): R07.9 - Chest pain, unspecified Hypertension Qualifiers: Hypertension type: primary hypertension Qualified Code(s): I10 - Essential (primary) hypertension Disposition: - TO HOME OR SELFCARE Is pt being admited?: No Condition: Stable Instructions: Nonspecific Chest Pain, Adult, Hypertension (ED) Additional Instructions: Please follow-up with a primary care physician in the next few days. Please try and quit smoking cigarettes. I have sent your contact information over to the [facility], and someone from their office should be contacting you shortly for close outpatient follow-up. Just in case, I have given you a referral for one of their brick kiln burner, Dr. Allison. I have given you a referral for a local breast surgeon, to follow-up regarding your intermittent breast pains. Take all medications as prescribed. You have been prescribed a medication that is sedating and therefore should not be taken prior to driving, working, and responsible for children and in no way should be mixed with alcohol of any quantity. Return to the emergency department with any worsening of your symptoms, new or concerning symptoms not addressed during this current emergency department visit, or with any acute distress. Prescriptions: Sulfamethoxazole/Trimethoprim [Bactrim DS TAB] 1 each PO BID #14 tablet Cyclobenzaprine [Flexeril] 10 mg PO TID PRN #12 tablet PRN Reason: Muscle Spasm Referrals: PRIMARY CAREMD [Primary Care Provider] - 2-3 Days SHAKIRA PHILLIPS MD [Staff Physician] - 2-3 Days RADHA ALLISON MD [Staff Physician] - 2-3 Days Time of Disposition: 05:43
[2020-08-18 03:24] LABS: Alanine Aminotransferase 6 units/L (7-56); Blood Urea Nitrogen 9 mg/dL (7-17); Hemolysis Index 6
[2020-08-18 03:31] LABS: BUN/Creatinine Ratio 13
--- NOTE | 2020-08-18 04:08 | XRay Report ---
XR chest routine 2V INDICATION / CLINICAL INFORMATION: Chest pain. COMPARISON: 07/11/2019 FINDINGS: SUPPORT DEVICES: None. HEART /PULMONARY VASCULATURE: No significant abnormality. LUNGS / PLEURA: No significant pulmonary or pleural abnormality. No pneumothorax. ADDITIONAL FINDINGS: No significant additional findings. IMPRESSION: 1. No acute findings. Signer Name: Bernabe Stewart MD Signed: 08/18/2020 4:03 AM Workstation Name: [id number]
[2020-08-18] MEDS ORDERED: diphenhydrAMINE 50 MG/ML VIAL ONE (04:12)
[2020-08-18] MEDS ORDERED: diphenhydrAMINE 50 MG/ML VIAL IV ONE (04:25)
[2020-08-18] MEDS ORDERED: methylPREDNISolone Sod Succinate 125 MG/2 ML INJ IV ONE (05:04)
--- NOTE | 2020-08-18 05:22 | Cat Scan Report ---
CTA CHEST WITH CONTRAST INDICATION / CLINICAL INFORMATION: CP, SOB, elevated dimer. TECHNIQUE: Axial CT images were obtained through the chest after injection of IV contrast. 3 plane NC P and/or 3D reconstructions were produced. All CT scans at this location are performed using CT dose reduction for ALARA by means of automated exposure control. COMPARISON: CTA of the chest from 07/11/2019 FINDINGS: PULMONARY ARTERIES: No central or segmental pulmonary embolus. THORACIC AORTA: No significant abnormality. HEART: No significant abnormality. ADENOPATHY: Stable shotty left axillary lymph nodes. No new or increasing adenopathy. LUNGS/PLEURA: No focal airspace consolidation. No pleural effusion. No pneumothorax. ADDITIONAL FINDINGS: None. UPPER ABDOMEN: No acute findings. SKELETAL STRUCTURES: No significant osseous abnormality. IMPRESSION: No acute findings in the chest. No evidence of pulmonary embolus. Signer Name: Bernabe Stewart MD Signed: 08/18/2020 5:18 AM Workstation Name: [id number]
[2020-08-18 05:47] VITALS: BP 141/82
--- NOTE | 2020-08-21 09:38 | Electrocardiograph Report ---
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
== END 2020-08-18 06:05 | disposition home or self-care (01) ==
LOC: ED 01:59
DX: N64.4 Mastodynia (principal); I10 Essential (primary) hypertension; R07.9 Chest pain, unspecified; F17.200 Nicotine dependence, unspecified, uncomplicated; E66.01 Morbid (severe) obesity due to excess calories; F12.90 Cannabis use, unspecified, uncomplicated; Z98.890 Other specified postprocedural states; Z68.43 Body mass index [BMI] 50.0-59.9, adult; Z88.0 Allergy status to penicillin; Z91.041 Radiographic dye allergy status; Z79.899 Other long term (current) drug therapy
CPT/HCPCS: 36415; 71046; 71275; 80053; 83880; 84484; 84703; 85025; 85379; 93005; 96361; 96374; 96375; 99284; J1200; J2270; J2405; J2930; J7030; Q9967

== ENCOUNTER 2020-10-24 14:04 | Emergency (ER) | payer MEDICAID ==
[2020-10-24 14:35] VITALS: BP 146/95
[2020-10-24] MEDS ORDERED: HYDROcodone/ACETAMINOPHEN 5-325 MG TAB PO ONE (14:40)
--- NOTE | 2020-10-24 15:06 | Emergency Department Report ---
ED General Adult HPI - General Chief complaint: Dyspnea/Respdistress Stated complaint: DIFFICULTY BREATHING Time Seen by Provider: 10/24/20 14:29 Source: patient Mode of arrival: Ambulatory Limitations: No Limitations - History of Present Illness Initial comments: Patient is a 35-year-old female presents emergency room complaints of left upper back pain that began this morning. She describes the pain as sharp and stabbing. She has associated shortness of breath. Patient states that she just returned from [place] on 10/20/2020. She reports that she received Covid testing and states that it was negative. She denies any cough, hemoptysis, fever, leg swelling, nausea, vomiting, diarrhea, numbness, weakness, chest pain. She denies any recent surgeries or hormone use. Past medical history of hypertension. Allergy to penicillin and iodine. Severity scale (0 -10): 10 - Related Data Home Medications Medication Instructions Recorded Confirmed Last Taken Aspirin BABY CHEW TAB 81 mg PO 1XW 07/07/19 07/11/19 07/05/19 labetaloL [Labetalol 100mg TAB] 100 mg PO BID 07/07/19 07/11/19 07/06/19 metFORMIN 500 mg PO BID MDD 500 07/07/19 07/11/19 07/06/19 Previous Rx's Medication Instructions Recorded Last Taken Type Amlodipine Besylate [Norvasc] 10 mg PO DAILY 30 Days #30 tablet 10/21/19 Unknown Rx Sulfamethoxazole/Trimethoprim 1 each PO BID 10 Days #20 tablet 10/21/19 Unknown Rx [Bactrim DS TAB] methylPREDNISolone [Medrol 4MG 4 mg PO DAILY 6 Days #1 tab.ds.pk 10/21/19 Unknown Rx DOSEPAK (21 tabs)] Cyclobenzaprine [Flexeril] 10 mg PO TID PRN #12 tablet 08/18/20 Unknown Rx Sulfamethoxazole/Trimethoprim 1 each PO BID #14 tablet 08/18/20 Unknown Rx [Bactrim DS TAB] Naproxen 375 mg PO BID PRN #14 tablet 10/24/20 Unknown Rx methOCARBAMOL [Robaxin TAB] 500 mg PO BID PRN #14 tab 10/24/20 Unknown Rx Allergies Allergy/AdvReac Type Severity Reaction Status Date / Time Penicillins Allergy Severe Hives Verified 08/18/20 04:16 Iodine and Iodide Containing Allergy Hives Verified 08/18/20 04:16 Produc ED Review of Systems ROS: Stated complaint: DIFFICULTY BREATHING Other details as noted in HPI Comment: All other systems reviewed and negative ED Past Medical Hx - Past Medical History Hx Hypertension: Yes Hx Congestive Heart Failure: No Hx Diabetes: No Hx Deep Vein Thrombosis: No Hx Renal Disease: No Hx Sickle Cell Disease: No Hx Seizures: No Hx Asthma: No Hx COPD: No Hx HIV: No Additional medical history: Vaginal delivery X 3, Morbid Obesity, Post Eclampsia - Surgical History Additional Surgical History: right ovary removed - Social History Smoking Status: Current Every Day Smoker Substance Use Type: Marijuana - Medications Home Medications: Home Medications Medication Instructions Recorded Confirmed Last Taken Type Aspirin BABY CHEW TAB 81 mg PO 1XW 07/07/19 07/11/19 07/05/19 History labetaloL [Labetalol 100mg TAB] 100 mg PO BID 07/07/19 07/11/19 07/06/19 History metFORMIN 500 mg PO BID MDD 500 07/07/19 07/11/19 07/06/19 History Amlodipine Besylate [Norvasc] 10 mg PO DAILY 30 Days #30 tablet 10/21/19 Unknown Rx Sulfamethoxazole/Trimethoprim 1 each PO BID 10 Days #20 tablet 10/21/19 Unknown Rx [Bactrim DS TAB] methylPREDNISolone [Medrol 4MG 4 mg PO DAILY 6 Days #1 tab.ds.pk 10/21/19 Unknown Rx DOSEPAK (21 tabs)] Cyclobenzaprine [Flexeril] 10 mg PO TID PRN #12 tablet 08/18/20 Unknown Rx Sulfamethoxazole/Trimethoprim 1 each PO BID #14 tablet 08/18/20 Unknown Rx [Bactrim DS TAB] Naproxen 375 mg PO BID PRN #14 tablet 10/24/20 Unknown Rx methOCARBAMOL [Robaxin TAB] 500 mg PO BID PRN #14 tab 10/24/20 Unknown Rx ED Physical Exam - General Limitations: No Limitations General appearance: alert, in no apparent distress - Head Head exam: Present: atraumatic, normocephalic - Eye Eye exam: Present: normal appearance - ENT ENT exam: Present: mucous membranes moist - Respiratory Respiratory exam: Present: normal lung sounds bilaterally. Absent: respiratory distress, wheezes, rales, rhonchi, stridor, chest wall tenderness, accessory muscle use, decreased breath sounds, prolonged expiratory - Cardiovascular Cardiovascular Exam: Present: regular rate, normal rhythm, normal heart sounds. Absent: systolic murmur, diastolic murmur, rubs, gallop - Back Exam Back exam: Present: normal inspection, full ROM. Absent: paraspinal tenderness, vertebral tenderness - Neurological Exam Neurological exam: Present: alert, oriented X3 - Psychiatric Psychiatric exam: Present: normal affect, normal mood - Skin Skin exam: Present: warm, dry, intact ED Course Vital Signs 10/24/20 14:32 Temperature 98.7 F Pulse Rate 98 H Respiratory 20 Rate Blood Pressure 146/95 O2 Sat by Pulse 100 Oximetry ED Medical Decision Making - Lab Data Result diagrams: 10/24/20 15:07 10/24/20 15:07 Lab Results 10/24/20 10/24/20 10/24/20 Range/Units 15:07 15:07 15:07 WBC 9.9 (4.5-11.0) K/mm3 RBC 4.25 (3.65-5.03) M/mm3 Hgb 11.9 (10.1-14.3) gm/dl Hct 36.1 (30.3-42.9) % MCV 85 (79-97) fl MCH 28 (28-32) pg MCHC 33 (30-34) % RDW 16.2 H (13.2-15.2) % Plt Count 365 (140-440) K/mm3 Baso % (Auto) Associate Professor Of Medicine Add Manual Diff Complete Total Counted 100 Seg Neuts % (Manual) 63.0 (40.0-70.0) % Lymphocytes % (Manual) 30.0 (13.4-35.0) % Monocytes % (Manual) 4.0 (0.0-7.3) % Eosinophils % (Manual) 2.0 (0.0-4.3) % Metamyelocytes % 1.0 % Nucleated RBC % Not Reportable Seg Neutrophils # Man 6.2 (1.8-7.7) K/mm3 Band Neutrophils # 0.0 K/mm3 Lymphocytes # (Manual) 3.0 (1.2-5.4) K/mm3 Abs React Lymphs (Man) 0.0 K/mm3 Monocytes # (Manual) 0.4 (0.0-0.8) K/mm3 Eosinophils # (Manual) 0.2 (0.0-0.4) K/mm3 Basophils # (Manual) 0.0 (0.0-0.1) K/mm3 Metamyelocytes # 0.1 K/mm3 Myelocytes # 0.0 K/mm3 Promyelocytes # 0.0 K/mm3 Blast Cells # 0.0 K/mm3 WBC Morphology Not Reportable Hypersegmented Neuts Not Reportable Hyposegmented Neuts Not Reportable Hypogranular Neuts Not Reportable Smudge Cells Not Reportable Toxic Granulation Not Reportable Toxic Vacuolation Not Reportable Dohle Bodies Not Reportable Pelger-Huet Anomaly Not Reportable Pepper Rods Not Reportable Platelet Estimate Consistent w auto Clumped Platelets Not Reportable Plt Clumps, EDTA Not Reportable Large Platelets Not Reportable Giant Platelets Not Reportable Platelet Satelliting Not Reportable Plt Morphology Comment Not Reportable RBC Morphology Not Reportable Dimorphic RBCs Not Reportable Polychromasia Not Reportable Hypochromasia Not Reportable Poikilocytosis Not Reportable Anisocytosis Not Reportable Microcytosis Not Reportable Macrocytosis Not Reportable Spherocytes Not Reportable Pappenheimer Bodies Not Reportable Sickle Cells Not Reportable Target Cells Not Reportable Tear Drop Cells Not Reportable Ovalocytes Not Reportable Helmet Cells Not Reportable [place] [employer] Bodies Not Reportable [place] Rings Not Reportable Leslie Cells Not Reportable Bite Cells Not Reportable Crenated Cell Not Reportable Elliptocytes Not Reportable Acanthocytes (Spur) Not Reportable Rouleaux Not Reportable Hemoglobin C Crystals Not Reportable Schistocytes Not Reportable Malaria parasites Not Reportable Favio Bodies Not Reportable Hem Pathologist Commnt No D-Dimer (0-234) ng/mlDDU Sodium 139 (137-145) mmol/L Potassium 3.6 (3.6-5.0) mmol/L Chloride 101.5 (98-107) mmol/L Carbon Dioxide 27 (22-30) mmol/L Anion Gap 14 mmol/L BUN 10 (7-17) mg/dL Creatinine 0.5 L (0.6-1.2) mg/dL Estimated GFR > 60 ml/min BUN/Creatinine Ratio 20 % Glucose 99 (65-100) mg/dL Calcium 9.1 (8.4-10.2) mg/dL Total Bilirubin 0.20 (0.1-1.2) mg/dL AST 14 (5-40) units/L ALT 12 (7-56) units/L Alkaline Phosphatase 63 (35-129) units/L Troponin T < 0.010 (0.00-0.029) ng/mL NT-Pro-B Natriuret Pep (0-450) pg/mL Total Protein 7.7 (6.3-8.2) g/dL Albumin 3.8 L (3.9-5) g/dL Albumin/Globulin Ratio 1.0 % HCG, Qual Negative (Negative) 10/24/20 10/24/20 10/24/20 Range/Units 15:07 15:07 17:33 WBC (4.5-11.0) K/mm3 RBC (3.65-5.03) M/mm3 Hgb (10.1-14.3) gm/dl Hct (30.3-42.9) % MCV (79-97) fl MCH (28-32) pg MCHC (30-34) % RDW (13.2-15.2) % Plt Count (140-440) K/mm3 Baso % (Auto) Add Manual Diff Total Counted Seg Neuts % (Manual) (40.0-70.0) % Lymphocytes % (Manual) (13.4-35.0) % Monocytes % (Manual) (0.0-7.3) % Eosinophils % (Manual) (0.0-4.3) % Metamyelocytes % % Nucleated RBC % Seg Neutrophils # Man (1.8-7.7) K/mm3 Band Neutrophils # K/mm3 Lymphocytes # (Manual) (1.2-5.4) K/mm3 Abs React Lymphs (Man) K/mm3 Monocytes # (Manual) (0.0-0.8) K/mm3 Eosinophils # (Manual) (0.0-0.4) K/mm3 Basophils # (Manual) (0.0-0.1) K/mm3 Metamyelocytes # K/mm3 Myelocytes # K/mm3 Promyelocytes # K/mm3 Blast Cells # K/mm3 WBC Morphology Hypersegmented Neuts Hyposegmented Neuts Hypogranular Neuts Smudge Cells Toxic Granulation Toxic Vacuolation Dohle Bodies Pelger-Huet Anomaly Pepper Rods Platelet Estimate Clumped Platelets Plt Clumps, EDTA Large Platelets Giant Platelets Platelet Satelliting Plt Morphology Comment RBC Morphology Dimorphic RBCs Polychromasia Hypochromasia Poikilocytosis Anisocytosis Microcytosis Macrocytosis Spherocytes Pappenheimer Bodies Sickle Cells Target Cells Tear Drop Cells Ovalocytes Helmet Cells [employer] [employer] Bodies [place] Rings Leslie Cells Bite Cells Crenated Cell Elliptocytes Acanthocytes (Spur) Rouleaux Hemoglobin C Crystals Schistocytes Malaria parasites Favio Bodies Hem Pathologist Commnt D-Dimer 191.8 (0-234) ng/mlDDU Sodium (137-145) mmol/L Potassium (3.6-5.0) mmol/L Chloride (98-107) mmol/L Carbon Dioxide (22-30) mmol/L Anion Gap mmol/L BUN (7-17) mg/dL Creatinine (0.6-1.2) mg/dL Estimated GFR ml/min BUN/Creatinine Ratio % Glucose (65-100) mg/dL Calcium (8.4-10.2) mg/dL Total Bilirubin (0.1-1.2) mg/dL AST (5-40) units/L ALT (7-56) units/L Alkaline Phosphatase (35-129) units/L Troponin T < 0.010 (0.00-0.029) ng/mL NT-Pro-B Natriuret Pep 117.4 (0-450) pg/mL Total Protein (6.3-8.2) g/dL Albumin (3.9-5) g/dL Albumin/Globulin Ratio % HCG, Qual (Negative) - EKG Data EKG shows normal: sinus rhythm, axis, intervals, QRS complexes, ST-T waves Rate: normal - Radiology Data Radiology results: report reviewed Ordering Physician: CARLINE FERNÁNDEZ Date of Service: 10/24/20 Procedure(s): XR chest routine 2V Accession Number(s): [id number] cc: CARLINE FERNÁNDEZ Fluoro Time In Minutes: CHEST 2 VIEWS INDICATION / CLINICAL INFORMATION: Chest Pain. FINDINGS: SUPPORT DEVICES: None. HEART / MEDIASTINUM: No significant abnormality. LUNGS / PLEURA: No significant pulmonary or pleural abnormality. No pneumothorax. ADDITIONAL FINDINGS: No significant additional findings. IMPRESSION: 1. No acute findings. Signer Name: James Mckeon MD Signed: 10/24/2020 6:02 PM Workstation Name: [id number] Transcribed By: NICKO Dictated By: James Mckeon MD Electronically Authenticated By: James Mckeon MD Signed Date/Time: 10/24/201801 DD/ 01 TD/TT: - Medical Decision Making Patient is a 35-year-old female presents emergency room complaints of left upper back pain that began this morning. She describes the pain as sharp and stabbing. She has associated shortness of breath. Patient states that she just returned from [place] on 10/20/2020. She reports that she received Covid testing and states that it was negative. She denies any cough, hemoptysis, fever, leg swelling, nausea, vomiting, diarrhea, numbness, weakness, chest pain. She denies any recent surgeries or hormone use. Past medical history of hypertension. Allergy to penicillin and iodine. Vitals are stable. EKG is within normal limits. Labs are stable. Troponin is negative x2. D-dimer is negative. PERC criteria negative for PE, PE unlikely. Chest x-ray: 1. No acute findings. Patient was evaluated in the emergency department for similar symptoms in August and had a negative CT angio chest at that time, she states that she never followed up with anyone. Patient given prescription for medication. Advised patient Please take medication as prescribed as needed. Follow-up with a primary care doctor. Follow-up with a burlap roll coverer. Return to emergency room for any new or worsening symptoms. Critical care attestation.: If time is entered above; I have spent that time in minutes in the direct care of this critically ill patient, excluding procedure time. ED Disposition Clinical Impression: Upper back pain, SOB (shortness of breath), BMI 50.0-59.9, adult Disposition: HOME / SELF CARE / HOMELESS Is pt being admited?: No Does the pt Need Aspirin: No Condition: Stable Additional Instructions: Please take medication as prescribed as needed. Follow-up with a primary care doctor. Follow-up with a burlap roll coverer. Return to emergency room for any new or worsening symptoms. Prescriptions: Naproxen 375 mg PO BID PRN #14 tablet PRN Reason: pain methOCARBAMOL [Robaxin TAB] 500 mg PO BID PRN #14 tab PRN Reason: pain Referrals: KAREN TEIXEIRA MD [Staff Physician] - 3-5 Days [facility] [Primary Care Provider] - 3-5 Days Time of Disposition: 18:38 Print Language: LATVIAN
[2020-10-24 15:50] LABS: Alanine Aminotransferase 12 units/L (7-56); Albumin 3.8 g/dL (3.9-5); Blood Urea Nitrogen 10 mg/dL (7-17); Calcium 9.1 mg/dL (8.4-10.2); Hemolysis Index 4
[2020-10-24 15:51] LABS: BUN/Creatinine Ratio 20
[2020-10-24 16:01] LABS: Hematocrit 36.1 % (30.3-42.9); Hemoglobin 11.9 gm/dl (10.1-14.3); Mean Corpuscular HGB Conc 33 % (30-34); Mean Corpuscular Volume 85 fl (79-97); Platelet Count 365 K/mm3 (140-440); Red Blood Count 4.25 M/mm3 (3.65-5.03); Red Cell Distribution Width 16.2 % (13.2-15.2)
--- NOTE | 2020-10-24 18:06 | XRay Report ---
CHEST 2 VIEWS INDICATION / CLINICAL INFORMATION: Chest Pain. FINDINGS: SUPPORT DEVICES: None. HEART / MEDIASTINUM: No significant abnormality. LUNGS / PLEURA: No significant pulmonary or pleural abnormality. No pneumothorax. ADDITIONAL FINDINGS: No significant additional findings. IMPRESSION: 1. No acute findings. Signer Name: James Mckeon MD Signed: 10/24/2020 6:02 PM Workstation Name: [id number]
[2020-10-24 18:49] LABS: Total Cells Counted 100
[2020-10-24 18:50] LABS: Platelet Estimate Consistent w Auto
--- NOTE | 2020-10-25 13:32 | Electrocardiograph Report ---
[facility] Test Date: 2020-10-24 Test Time: 15:13:46 Pat Name: KIM WHITEHEAD Department: Room: Gender: F Snow Blower: ANGELINA : 1985 Requested By: ROSENDO COON Order Number: [id number] Reading MD: Anish Orr Measurements Intervals [place] Rate: 96 P: 64 MI: 160 QRS: 45 QRSD: 82 T: 33 QT: 362 QTc: 457 Interpretive Statements Sinus rhythm Compared to ECG 08/18/2020 02:10:37 No significant change Electronically Signed On 10-25-2020 13:32:09 EDT by Anish Orr
== END 2020-10-24 18:45 | disposition home or self-care (01) ==
LOC: ED 14:04
DX: M54.6 Pain in thoracic spine (principal); R06.02 Shortness of breath; Z68.43 Body mass index [BMI] 50.0-59.9, adult; I10 Essential (primary) hypertension; E66.01 Morbid (severe) obesity due to excess calories; Z98.890 Other specified postprocedural states; F17.290 Nicotine dependence, other tobacco product, uncomplicated; Z88.0 Allergy status to penicillin; Z91.041 Radiographic dye allergy status
CPT/HCPCS: 36415; 71046; 80053; 83880; 84484; 84703; 85007; 85025; 85379; 93005; 99283

== ENCOUNTER 2021-08-25 07:25 | Outpatient (CLI) | payer MEDICAID ==
--- NOTE | 2021-08-25 09:14 | Fluoroscopy Report ---
ESOPHAGRAM INDICATION / CLINICAL INFORMATION: K30 E66.01 Z01.818 TECHNIQUE: Esophagram was performed with double contrast barium and air. COMPARISON: None available. FINDINGS: MOTILITY: No significant abnormality. MUCOSA: No significant abnormality. MASS: None. STRICTURE: None. HIATAL HERNIA: None. REFLUX: None. BARIUM TABLET: Tablet passed into the stomach without delay. ADDITIONAL FINDINGS: None. Fluoroscopy Time: 1.8 minutes. Fluoroscopy Images: 12. IMPRESSION: 1. No significant abnormality. Signer Name: Reymundo Islas DO Signed: 08/25/2021 9:09 AM Workstation Name: [id number]
[2021-08-25 09:19] LABS: Basophils # (Auto) 0.1 K/mm3 (0.0-0.1); Eosinophils # (Auto) 0.3 K/mm3 (0.0-0.4); Eosinophils % (Auto) 2.7 % (0.0-4.3); Hematocrit 35.2 % (30.3-42.9); Hemoglobin 11.9 gm/dl (10.1-14.3); Lymphocytes # (Auto) 3.1 K/mm3 (1.2-5.4); Lymphocytes % (Auto) 27.5 % (13.4-35.0); Mean Corpuscular HGB Conc 34 % (30-34); Mean Corpuscular Volume 82 fl (79-97); Monocytes # (Auto) 0.9 K/mm3 (0.0-0.8); Monocytes % (Auto) 8.3 % (0.0-7.3); Platelet Count 401 K/mm3 (140-440); Red Blood Count 4.32 M/mm3 (3.65-5.03); Red Cell Distribution Width 15.4 % (13.2-15.2)
[2021-08-25 10:21] LABS: % Iron Saturation 15.35 %; Alanine Aminotransferase 13 units/L (7-56); Albumin 4.1 g/dL (3.9-5); BUN/Creatinine Ratio 12; Blood Urea Nitrogen 7 mg/dL (7-17); Chol/HDL Ratio 4.47 %; HDL Cholesterol 40 mg/dL (40-59); Hemolysis Index 5; Iron 39 ug/dL (37-170); LDL Cholesterol,Direct 122 mg/dL (50-130); Total Iron Binding Capacity 254 mcg/dL (250-450)
== END 2021-08-25 07:26 | disposition home or self-care (01) ==
LOC: FLUORO 07:25
PROVIDERS: ATTEND Surgery
DX: Z01.818 Encounter for other preprocedural examination (principal); Z13.1 Encounter for screening for diabetes mellitus; Z13.29 Encounter for screening for other suspected endocrine disorder; Z13.21 Encounter for screening for nutritional disorder; E55.9 Vitamin D deficiency, unspecified; K30 Functional dyspepsia; E66.01 Morbid (severe) obesity due to excess calories
CPT/HCPCS: 36415; 74220; 80053; 80061; 82306; 82607; 82728; 83036; 83550; 84443; 85025; 85730